=== PATIENT | male | born 1955 | race Caucasian/White ===

== ENCOUNTER 2023-09-11 08:51 | Day surgery (SDC) | payer MEDICARE, SELFPAY ==
[2023-09-02 10:39] VITALS: BMI 39.1
[2023-09-02 11:08] LABS: % Basophils 0.6 % (0-2); % Eosinophils 7.1 % (0-6); % Immature Granulocytes 0.1 % (0-0.5); % Lymphocytes 50.6 % (20.5-51.1); % Monocytes 8.9 % (1.7-9.3); % Neutrophils 32.7 % (42.2-75.2); Absolute Basophils 0.1 10^3/uL (0-0.2); Absolute Eosinophils 0.6 10^3/uL (0-0.7); Absolute Monocytes 0.7 10^3/uL (0.1-0.6); Absolute Neutrophils 2.6 10^3/uL (1.4-6.5); Hematocrit 42.6 % (39.0-52.0); Hemoglobin 14.7 g/dL (13.0-18.0); Mean Corp Hgb Conc. 34.5 g/dL (33.0-37.0); Mean Corpuscular Hgb 30.6 pg (27.0-31.0); Mean Corpuscular Volume 88.6 fL (80.0-94.0); Mean Platelet Volume 10.7 fL (7.4-10.4); Nucleated Red Blood Cells % 0 % (-); Platelet Count 167 10^3/uL (130-400); Red Blood Cell Count 4.81 10^6/uL (4.70-6.10); Red Cell Dist. Width 12.7 % (11.5-14.5)
[2023-09-02 11:17] LABS: INR 1.19; PT 14.9 Sec (11.4-14.6)
[2023-09-02 11:48] LABS: ALT (SGPT) 27 U/L (0-50); AST (SGOT) 34 U/L (17-59); Albumin 4.8 g/dl (3.5-5.0); Alkaline Phosphatase 95 U/L (38-126); Blood Urea Nitrogen 18 mg/dl (9-20); Calcium 9.4 mg/dl (8.4-10.2); Carbon Dioxide 29 mmol/L (22-30); Chloride 102 mmol/L (98-107); Estimated Creatinine Clearance 116 ml/min; Glucose 110 mg/dl (70-99); Magnesium 1.8 mg/dl (1.6-2.3); Potassium 4.3 mmol/L (3.5-5.1); Sodium 139 mmol/L (135-145); Total Bilirubin 1.4 mg/dl (0.2-1.3); Total Protein 7.6 g/dl (6.3-8.2); eGFR > 60.00
[2023-09-11 09:00] VITALS: BP 134/71
[2023-09-11 09:18] VITALS: BP 134/71
[2023-09-11 09:45] LABS: Glucose - Point of Care 116 mg/dl (70-99)
[2023-09-11 15:39] VITALS: BP 117/55
--- NOTE | 2023-09-11 16:24 | ITS.CL.ABL ---
Child Therapist - Ablation
Ablation
Procedure Report:
Procedure Date: 09/11/2023
Procedure
Electrophysiology Study, with RA, CS pacing and recording
Radiofrequency Ablation of Counterclockwise Cavotricuspid Isthmus-dependent Right Atrial Flutter
Three-dimensional Electroanatomic Mapping and Navigation
Patient History
See H&P for complete details
Patient is pleasant 68-year-old male with past medical history significant for BPPV status post EPS/RFA x 2 ([facility]i 2002, [facility] 2007), sleep apnea, obesity, aortic stenosis, GERD, asthma, mixed anemia, diabetes, bifascicular block,
persistent typical atrial flutter. Patient presenting for electrophysiology study and ablation of symptomatic typical persistent atrial flutter.
Method
After informed consent was obtained, the patient was brought to the EP lab in a post-absorptive, non-sedated state. A peripheral IV was in place. Continuous electrocardiography, blood pressure and pulse oximetry monitoring were initiated and
cardioversion / defibrillator patch electrodes were positioned on the chest in an anterior-posterior orientation. Sedation was administered via the anesthesia services. A time-out was called. Local anesthesia was administered at the right and left
femoral vein access sites. Vascular access was achieved using modified Seldinger technique, and 3 sheaths were placed.
The patient entered the room in sinus rhythm. A multipolar catheter were advanced to the coronary sinus. A mapping / ablation catheter was used to record and pace. Intracardiac ultrasound (ICE) was utilized for structural assessment and monitoring;
a prominent epicardial fat pad was noted at the beginning of the case which remained unchanged throughout and post-procedure. Tachycardia was characterized by activation patterns in the CS catheters. Entrainment maneuvers established
cavotricuspid isthmus-dependence.
Three-dimensional electroanatomic mapping was utilized. Catheter ablation in the right atrium was performed as described below. The patient�s atrial flutter terminated during ablation. Ablation continued until a line was complete from the
tricuspid valve annulus to the IVC-RA junction. Clockwise and counterclockwise trans-isthmus times were determined, and RA activation patterns confirmed bidirectional block. Interval measurements in NSR were made. A waiting period was observed,
after which the procedure was concluded.
At the end of the procedure, all catheters and sheaths were removed, hemostasis was assured in the standard fashion, and the patient was taken to the recovery area in stable condition.
Conduction Intervals (post-ablation, in ms)
A-A A-H H-V P-R QRS dur Q-T V-V
1056 120 46 [phone] [id number]
AVWB at 520 ms
AV Node ERP 600/420 ms
No arrhythmia was inducible post ablation
Arrhythmia Summary
#1 - Counterclockwise Cavotricuspid Isthmus-dependent Right Atrial Flutter
� Present at study outset (via induction with burst pacing via CS at 210 ms)
� Stable Atrial CL = 230 ms
� Surface flutter wave morphology: Negative in the inferior leads and positive in V1
� Right to left activation in CS
� Cycle length contained with in the RA on electroanatomic mapping
� Pacing from the isthmus resulted in entrainment (with concealment) with PPI=TCL.
These finding established the diagnosis of isthmus-dependent, counterclockwise atrial flutter.
Mapping and Ablation
Utilizing electroanatomic three-dimensional navigation, a 3.5 mm tip [employer] SE irrigated ablation catheter was advanced to the right atrium with the assistance of an 11.5 Fr Agilis steerable long sheath. An electroanatomic three-dimensional map
of the right atrium was constructed, with careful attention to anatomic landmarks, including the coronary sinus, IVC-RA and SVC-RA junction, tricuspid valve annulus, and region of the His bundle electrogram.
An ablation line was created from the tricuspid annulus to the IVC in the 6:00 position (MAURITANIAN clock). Power was titrated between 30 and 40 Andino. The patient�s atrial flutter terminated during ablation, with resumption of NSR. The line was
completed during CS pacing, and bidirectional block was achieved (65 ms before CTI completion and 165 ms post ablation). The ablation line was mapped to ensure widely spaced double potentials, and after a 20 minute waiting period, bidirectional
block persisted.
Ablation Summary
Total ablation time: 7 minutes 6 seconds
Estimated Blood Loss
5-10 cc
Fluoroscopy Time 2.4
Radiation Dose 11.9 mGy
DAP 1.59
Complications
None
Conclusions
1. Typical, counterclockwise atrial flutter. Isthmus-dependence was established with entrainment.
2. Successful ablation of the cavotricuspid isthmus with bidirectional block.
Recommendations
- Anticipate discharge home today
- Bedrest with straight leg precautions for four hours
- Resume anticoagulation tonight if patient/groins stable
- Continue remaining home medications as indicated
- Follow-up in clinic in 4-6 weeks or sooner if needed
Sergio Buenrostro,
Clinical Cardiac Electrophysiology
cc: Ned Green MD; Shahrzad Liao PA-C
[2023-09-11 17:33] VITALS: BP 112/76
== END 2023-09-11 18:02 | disposition home or self-care (01) ==
LOC: CATH 08:51
PROVIDERS: ATTENDING PHYSICIAN Internal Medicine Cardiovascular Disease; FAMILY PHYSICIAN Physician Assistant Medical
DX: I48.3 Typical atrial flutter (principal); I45.6 Pre-excitation syndrome; I48.92 Unspecified atrial flutter; I35.0 Nonrheumatic aortic (valve) stenosis; Z79.84 Long term (current) use of oral hypoglycemic drugs; E11.9 Type 2 diabetes mellitus without complications; I10 Essential (primary) hypertension; Z85.46 Personal history of malignant neoplasm of prostate; J45.909 Unspecified asthma, uncomplicated; E78.5 Hyperlipidemia, unspecified; Z92.3 Personal history of irradiation; G47.33 Obstructive sleep apnea (adult) (pediatric); K21.9 Gastro-esophageal reflux disease without esophagitis; E66.9 Obesity, unspecified; Z68.39 Body mass index [BMI] 39.0-39.9, adult; I45.2 Bifascicular block; Z79.01 Long term (current) use of anticoagulants
CPT/HCPCS: C1894; C1766; C2630; 36415; 75572; 76937; 80053; 82962; 83735; 85025; 85610; 86850; 86900; 86901; 93005; 93653; C1760; C1777; C1882; C1887; C1898; Q9967

== ENCOUNTER → 2023-10-02 12:28 | Outpatient (REF) | payer MEDICARE, SELFPAY | LOC: RCS 12:28 | PROVIDERS: ATTENDING PHYSICIAN Internal Medicine Interventional Cardiology; FAMILY PHYSICIAN Physician Assistant Medical | DX: I35.0 Nonrheumatic aortic (valve) stenosis (principal) | CPT/HCPCS: 93306 ==

== ENCOUNTER 2023-12-06 09:26 | Day surgery (SDC) | payer MEDICARE, SELFPAY ==
[2023-12-06] VITALS (11 sets, daily range): BP systolic 92–163; BP diastolic 51–73; BMI 39.5
[2023-12-06 10:01] LABS: Hematocrit 43.9 % (39.0-52.0); Hemoglobin 15.2 g/dL (13.0-18.0); Mean Corp Hgb Conc. 34.6 g/dL (33.0-37.0); Mean Corpuscular Hgb 30.2 pg (27.0-31.0); Mean Corpuscular Volume 87.3 fL (80.0-94.0); Mean Platelet Volume 10.3 fL (7.4-10.4); Platelet Count 158 10^3/uL (130-400); Red Blood Cell Count 5.03 10^6/uL (4.70-6.10); Red Cell Dist. Width 12.8 % (11.5-14.5); White Blood Cell Count 8.3 10^3/uL (4.8-10.8)
[2023-12-06] MEDS: LOW STRENGTH ASPIRIN 81 MG PO (10:05)
[2023-12-06 10:06] LABS: Glucose - Point of Care 122 mg/dl (70-99)
[2023-12-06 10:14] LABS: Blood Urea Nitrogen 15 mg/dl (9-20); Calcium 9.5 mg/dl (8.4-10.2); Carbon Dioxide 24 mmol/L (22-30); Chloride 105 mmol/L (98-107); Estimated Creatinine Clearance > 125 ml/min; Glucose 122 mg/dl (70-99); Potassium 4.5 mmol/L (3.5-5.1); Sodium 139 mmol/L (135-145); eGFR > 60.00
[2023-12-06] MEDS: NSS 1000 IV (12:34)
--- NOTE | 2023-12-06 13:38 | CONSULT.STRU ---
Consultation
-
Date/Time Consultation Requested: 12/06/2023 1235
Date/Time Consultation Performed: 12/06/2023 1300
Requesting Provider: Dr. Richy Green
Performing Provider: ANTELMO Guerrero
Reason for Consultation: Aortic stenosis/TAVR vs SAVR evaluation
Patient History
Physicians
Family Physician: Dr. Shahrzad Liao
Outpatient [employer] Dispatcher: Dr. Richy Green
Primary [employer] Dispatcher: Dr. Richy Green
History of Present Illness
Patient is pleasant 68-year-old male with past medical history significant for BPPV status post EPS/RFA x 2 (Eddi 2001, [facility] 2007), sleep apnea, obesity, aortic stenosis, GERD, asthma, mixed anemia, diabetes, bifascicular block,
persistent typical atrial flutter. Most recently he underwent RFA with Dr. Trent on 09/11/2023. He now presents today for cardiac cath as part of the evaluation process for treatment of his aortic stenosis. He has recently been experiencing
progressive MUJICA over the past 6 months. Echocardiogram from September is notable for AV PG/M/48, RAYO 1.1, No AI, EF 60-65%. 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
Reviewed the pathophysiology of aortic stenosis with the patient and his . Explained the treatment options of SAVR and TAVR. Discussed the need for life planning given his age and the probable need for at least two valves. Explained the TAVR
evaluation process including follow up BMP, CT TAVR scan, CT surgery consult and Heart Team discussion. Provided with script for BMP next week, script and appointment for CT TAVR, Consult appointment with Dr. Spencer and a copy of the TAVR education
booklet with contact information. Allowed for and answered questions.
Past Medical History
Past Medical History: Arrhythmias (Estrella Parkinson White Syndrome, A-flutter), Asthma (as a child), Cancer (h/o prostate cancer), MUJICA, GERD, Hypercholesterolemia, NIDDM, KWABENA (wears CPAP), Valvular Disease (Aortic stenosis) and Other (obesity, h/o
soft tissue mass, R-BBB/L-AFB)
Past Surgical History
Past Surgical History: Orthopedic (left shoulder rotator cuff repair, Left MCL, left hand surgery), Urological (Prostatectomy) and Other (Vasectomy, excision of soft tissue mass, cardiac ablations x 3)
Dental History
Has not been to the dentist is years. Will make appointment to see 's dentist - [facility] in [place], [place]
Family History
Mother: at Age
Father: at Age
Social History
Alcohol: Occasional
Drug: None
Tobacco: Non-Smoker
Personal:
Living: With Spouse
Employment: Retired
Allergies
Allergy/AdvReac Type Severity Reaction Status Date / Time
cat dander Allergy trouble Verified 08/27/23 11:27
breathing,
watery
eyes &
sneezing
chlorhexidine Allergy Rash Verified 08/27/23 11:27
[From Hibiclens]
dog dander Allergy trouble Verified 08/27/23 11:27
breathing,
watery
eyes &
sneezing
egg Allergy diarrhea Verified 09/11/23 15:44
ezetimibe [From Vytorin] Allergy Unknown Verified 09/11/23 15:43
ragweed pollen Allergy trouble Verified 08/27/23 11:27
breathing,
watery
eyes &
sneezing
simvastatin [From Vytorin] Allergy Unknown Verified 09/11/23 15:43
Home Medications
�Medication �Instructions �Recorded �Confirmed �Type
lisinopril 20 mg tablet 20 mg PO QPM 07/15/12 12/06/23 History
ibuprofen 200 mg tablet 400 mg PO PRN PRN pain 05/15/21 12/06/23 History
acetaminophen 325 mg tablet 650 mg PO PRN PRN pain 06/08/22 12/06/23 History
(Tylenol)
atorvastatin 20 mg tablet 20 mg PO QPM 06/08/22 12/06/23 History
budesonide-formoterol HFA 160 1 - 2 puff inhalation PRN PRN SOB 06/08/22 12/06/23 History
mcg-4.5 mcg/actuation aerosol
inhaler (Symbicort)
fluticasone propionate 50 1 - 2 spray intranasal PRN PRN 06/08/22 12/06/23 History
mcg/actuation nasal allergy
spray,suspension
metformin 500 mg tablet 500 mg PO QPM 06/08/22 12/06/23 History
apixaban 5 mg tablet (Eliquis) 5 mg PO BID 07/02/23 12/06/23 History
coenzyme Q10 100 mg capsule 50 mg PO QPM 07/02/23 12/06/23 History
(CoQ-10)
guaifenesin 1,200 mg tablet, 1,200 mg PO PRN PRN allergies 07/02/23 12/06/23 History
extended release 12 hr (Mucinex)
albuterol 90 mcg/actuation aerosol 90 mcg inhalation Q4 PRN sob 12/06/23 12/06/23 History
inhaler
STS%
STS %: 1.25%
Review of Systems
-
History Source: Patient
General: Reports No Symptoms
HEENT: Reports No Symptoms
Respiratory: Reports MUJICA
Cardiac: Reports No Symptoms
Abdomen/GI: Reports No Symptoms
: Reports Dysuria ('weak stream')
Musculoskeletal: Reports No Symptoms
Skin: Reports No Symptoms
Neurological: Reports No Symptoms
Vascular: Reports No Symptoms
Physical Exam
Vital Signs
Temp 98.3 F 12/06/23 09:36
Temp route: Oral 12/06/23 09:36
Pulse 56 12/06/23 13:30
Resp Rate 13 12/06/23 13:30
Blood pressure 128/65 12/06/23 13:21
Blood pressure extremity used: Right upper arm 12/06/23 09:36
Position: Lying 12/06/23 09:36
MAP (cuff-Kaila Monitor) 82 12/06/23 13:21
SaO2 94 12/06/23 13:30
Oxygen Mode of Delivery Room air 12/06/23 12:20
Can the patient verbally communicate their pain? Yes 12/06/23 12:20
Actual Weight 121.109 kg 12/06/23 10:01
Body Mass Index (BMI) 39.5 12/06/23 10:01
Labs
12/06/23 09:53
12/06/23 09:53
Diagnostic Studies
Echocardiogram 10/02/2023
CONCLUSIONS
Normal left ventricular size and systolic function. No regional wall motion
abnormalities are seen. LV ejection fraction is 60-65%.
Severe aortic stenosis. Peak/mean gradients are 76/48mmHg. The valve area by
continuity equation is 1.1cm sq. No aortic regurgitation is seen.
Compared to the previous LOGAN from Jul 2023, aortic stenosis was moderate to
severe, however gradients were not able to be obtained.
Indications:
NONRHEUMATIC AORTIC (VALVE) STENOSIS
Rhythm: Sinus
Portable Study: No
Technical Quality: Technically difficult study
Contrast: None
BP: 124 / 76
PROCEDURE
A complete Transthoracic Echocardiogram was performed utilizing two-dimensional
evaluation with color flow and spectral Doppler analysis.
FINDINGS
Left Ventricle
Normal left ventricular size and systolic function. No regional wall motion
abnormalities are seen. LV ejection fraction is 60-65% by visual assessment.
Mild concentric left ventricular hypertrophy. Diastolic function indeterminate.
Right Ventricle
Normal right ventricular size. Normal right ventricular systolic function.
Left Atrium
Indexed LA volume is within normal range (15-34 mL/m2).
Right Atrium
Normal right atrial size.
Mitral Valve
Structurally normal mitral valve. Mitral valve opens normally. No mitral
regurgitation is seen.
Aortic Valve
Thickened aortic valve with restricted leaflet motion. Severe aortic stenosis.
Peak/mean gradients are 76/48mmHg. The valve area by continuity equation is
1.1cm sq, using a LVOT of 2.0cm. No aortic regurgitation is seen.
Tricuspid Valve
Structurally normal tricuspid valve. Tricuspid valve opens normally. No
tricuspid regurgitation is seen. Right heart pressures could not be determined.
Pulmonic Valve
Pulmonic valve opens normally. No pulmonic regurgitation is seen.
Pericardium\\Pleura
Normal pericardium without effusion. No pleural effusion present.
Aorta
The aortic root is normal in caliber. The aortic arch is normal in caliber.
Other Finding
The IVC is of normal size and demonstrates normal respiratory variation.
Interatrial septum is intact with no evidence of shunting by color flow
Doppler. No intracardiac mass or thrombus formation seen.
MEASUREMENTS (Male / Female) Normal Values
2D ECHO
LV Diastolic Diameter PLAX 5.6 cm 4.2 - 5.9 / 3.9 - 5.3 cm
LV Systolic Diameter PLAX 3.0 cm
IVS Diastolic Thickness 1.2 cm 0.6 - 1.0 / 0.6 - 0.9 cm
LVPW Diastolic Thickness 1.3 cm 0.6 - 1.0 / 0.6 - 0.9 cm
LV Relative Wall Thickness 0.4
LVOT Diameter 2.0 cm
LA Area 4C View 18.4 cm2 <= 20 cm2
LA Length 4C 5.9 cm
LA Volume 44.4 cm3 18 - 58 / 22 - 52 cm3
RV Diastolic Basal Diameter 3.3 cm 2.0 - 2.8 cm
RV Diastolic Mid Diameter 2.8 cm 2.7 - 3.3 cm
Aorta at Sinotubular Diameter 2.7 cm
Ascending Aorta Diameter 3.3 cm
Aorta at Sinuses Diameter 3.0 cm
M-MODE
Aortic Root Diameter MM 3.3 cm
LA Systolic Diameter MM 4.0 cm
LA Ao Ratio MM 1.2
DOPPLER
AV Peak Velocity 436.0 cm/s
AV Peak Gradient 76.0 mmHg
AV Mean Gradient 48.0 mmHg
AV Velocity Time Integral 102.6 cm
LVOT Peak Velocity 147.0 cm/s
LVOT Peak Gradient 8.6 mmHg
LVOT Velocity Time Integral 36.5 cm
LVOT Stroke Volume 114.7 cm3
LVOT Stroke Volume Index 45.9 ml/m2 empty
LVOT Cardiac Index 2613.8 cm3/min
AV Area Cont Eq vti 1.1 cm2
AV Area Cont Eq pk 1.1 cm2
MV Area PHT 2.8 cm2
Mitral E Point Velocity 111.0 cm/s
Mitral A Point Velocity 81.4 cm/s
Mitral E to A Ratio 1.4
LV E' Lateral Velocity 6.3 cm/s
Mitral E to LV E' Lateral Ratio 17.6
LV E' Septal Velocity 5.8 cm/s
Mitral E to LV E' Septal Ratio 19.2
PV Peak Velocity 199.0 cm/s
PV Peak Gradient 15.8 mmHg
Cardiac Catheterization 12/06/2023
HEMODYNAMICS : (mmHg)
AO (s/d) : 128/74
CORONARY FINDINGS
DOMINANCE: Right
LEFT MAIN: Normal
LEFT ANTERIOR DESCENDING: The LAD arises normally from the left main and runs in the anterior interventricular groove. The LAD has only minor luminal irregularities over its course. The first diagonal branch arises from the proximal third of the
LAD
CIRCUMFLEX: The circumflex has an anomalous origin from the right coronary cusp. The circumflex supplies 2 obtuse marginal branches.
RIGHT CORONARY ARTERY: The right coronary artery is a dominant vessel arising from the right coronary cusp. Minor irregularities are noted. The PDA is large. Posterolateral branch is small
VENTRICULOGRAPHY: Not done
RADIATION SUMMARY: Fluoro Time (min): 7.8, Dose (mGy): 914, DAP (Gy.cm2) : 58.3
Closure Device: TR band
CONCLUSIONS
1. 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
2. Nonobstructive coronary disease
RECOMMENDATIONS
1. Proceed with CT scan of chest, abdomen, pelvis
2. Patient will be discussed in multidisciplinary valve clinic forearm to determine best treatment option for his aortic stenosis
Exam
General: Well Developed, Well Nourished, No Apparent Distress and Comfortable
HEENT: Normocephalic, Moist Mucous Membranes and PERRLA
Neck: Trachea Midline
Respiratory: Clear; Negative Wheezes, Crackles or Rhonchi
Cardiac: S1/S2, Regular Rhythm and Murmur (Grade II/)
GI: Soft, Non Tender, Non Distended and Normal Bowel Sounds
Rectal: Deferred by Provider
Skin: Warm and Dry
Neuro: AO x 3 and No Motor Deficits
Extremities: Pulses (+2 dp pulses bilaterally); Negative Lower Level Edema
Psych: Calm
Assessment / Plan
-
Procedure Type:�Isolated AVR
PERIOPERATIVE OUTCOME ESTIMATE %
Operative Mortality 1.25%
Morbidity & Mortality 7.55%
Stroke 0.674%
Renal Failure 1.03%
Reoperation 2.93%
Prolonged Ventilation 3.04%
Deep Sternal Wound Infection 0.078%
Long Hospital Stay (>14 days) 3.41%
Short Hospital Stay (<6 days)* 49.6%
Severe Aortic stenosis:
��������������� Continue evaluation for TAVR vs SAVR
��������������� BMP 12/12 at [facility]
��������������� CT TAVR scan 12/20/2023 at 0930 at
��������������� CT surgery consult with Dr. Spencer 12/25/2023
��������������� Heart team discussion at [facility]
Dental Clearance- has not seen dentist in 'years'
Data Reviewed
-
EKG: Report Reviewed by me
Saw Cleaner: Report Reviewed by me and Discussed with Physician
Echo: Report Reviewed by me and Discussed with Physician
Labs: Labs Reviewed by me
Total Time Spent with Patient (in minutes): 45
--- NOTE | 2023-12-06 15:51 | ITS.CL.CATH ---
Embedded Systems Software Engineer - Catheterization
Cardiac Catheterization
Procedure Report:
LEFT HEART CATHETERIZATION
Date of Procedure: December 06, 2023
Referring: Dr. Richy Green
PROCEDURES:
1. Coronary angiography
INDICATION: This is a 68-year-old gentleman with a past medical history notable for WPW treated with radiofrequency ablation in 2001 and 2007, obstructive sleep apnea, diabetes, asthma, hyperlipidemia, and hypertension. He was noted to be in atrial
flutter when he presented for colonoscopy in May 2023 and underwent ablation of the atrial flutter by Dr. Sergio Buenrostro on 09/13/2023. His aortic stenosis has progressed with his most recent mean gradient measuring 48 mmHg by echocardiography
on 10/02/2023 and he has noticed increased shortness of breath and decline in exercise capacity. He is now referred for coronary angiography.
ACCESS: Right radial artery, 6 Swiss sheath
HEMODYNAMICS : (mmHg)
AO (s/d) : 128/74
CORONARY FINDINGS
DOMINANCE: Right
LEFT MAIN: Normal
LEFT ANTERIOR DESCENDING: The LAD arises normally from the left main and runs in the anterior interventricular groove. The LAD has only minor luminal irregularities over its course. The first diagonal branch arises from the proximal third of the
LAD
CIRCUMFLEX: The circumflex has an anomalous origin from the right coronary cusp. The circumflex supplies 2 obtuse marginal branches.
RIGHT CORONARY ARTERY: The right coronary artery is a dominant vessel arising from the right coronary cusp. Minor irregularities are noted. The PDA is large. Posterolateral branch is small
VENTRICULOGRAPHY: Not done
RADIATION SUMMARY: Fluoro Time (min): 7.8, Dose (mGy): 914, DAP (Gy.cm2) : 58.3
Closure Device: TR band
CONCLUSIONS
1. 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
2. Nonobstructive coronary disease
RECOMMENDATIONS
1. Proceed with CT scan of chest, abdomen, pelvis
2. Patient will be discussed in multidisciplinary valve clinic forearm to determine best treatment option for his aortic stenosis
Copy to: Dr. Richy Green
== END 2023-12-06 15:00 | disposition home or self-care (01) ==
LOC: CATH 09:26
PROVIDERS: ATTENDING PHYSICIAN Internal Medicine Interventional Cardiology; FAMILY PHYSICIAN Physician Assistant Medical; OTHER PHYSICIAN Internal Medicine Interventional Cardiology
DX: I25.10 Atherosclerotic heart disease of native coronary artery without angina pectoris (principal); I35.0 Nonrheumatic aortic (valve) stenosis; I48.92 Unspecified atrial flutter; I10 Essential (primary) hypertension; E78.00 Pure hypercholesterolemia, unspecified; E11.9 Type 2 diabetes mellitus without complications; J45.909 Unspecified asthma, uncomplicated; G47.33 Obstructive sleep apnea (adult) (pediatric); K21.9 Gastro-esophageal reflux disease without esophagitis; E66.9 Obesity, unspecified; Z68.39 Body mass index [BMI] 39.0-39.9, adult; Z85.46 Personal history of malignant neoplasm of prostate; Z79.01 Long term (current) use of anticoagulants; Z79.84 Long term (current) use of oral hypoglycemic drugs
CPT/HCPCS: 80048; 82962; 85027; 93454; C1894; Q9967

== ENCOUNTER → 2023-12-20 09:10 | Outpatient (REF) | payer MEDICARE, SELFPAY | LOC: RAD 09:10 | PROVIDERS: ATTENDING PHYSICIAN Nurse Practitioner Adult Health | DX: I35.0 Nonrheumatic aortic (valve) stenosis (principal) | CPT/HCPCS: 74174; 75572; Q9967 ==

== ENCOUNTER 2024-01-08 05:06 | Inpatient (IN) | payer MEDICARE, SELFPAY ==
[2024-01-06 08:35] VITALS: BMI 38.8
[2024-01-06 09:30] LABS: % Basophils 0.4 % (0-2); % Eosinophils 3.5 % (0-6); % Immature Granulocytes 0.1 % (0-0.5); % Lymphocytes 48.8 % (20.5-51.1); % Monocytes 9.9 % (1.7-9.3); % Neutrophils 37.3 % (42.2-75.2); Absolute Eosinophils 0.2 10^3/uL (0-0.7); Absolute Lymphocytes 3.3 10^3/uL (1.2-3.4); Absolute Monocytes 0.7 10^3/uL (0.1-0.6); Absolute Neutrophils 2.5 10^3/uL (1.4-6.5); Hematocrit 42.9 % (39.0-52.0); Hemoglobin 14.6 g/dL (13.0-18.0); Mean Corpuscular Volume 88.3 fL (80.0-94.0); Mean Platelet Volume 10.7 fL (7.4-10.4); Nucleated Red Blood Cells % 0 % (-); Platelet Count 145 10^3/uL (130-400); Red Blood Cell Count 4.86 10^6/uL (4.70-6.10); Red Cell Dist. Width 12.4 % (11.5-14.5); White Blood Cell Count 6.8 10^3/uL (4.8-10.8)
[2024-01-06 09:31] LABS: PT 14.3 Sec (11.4-14.6)
[2024-01-06 09:34] LABS: APTT 32.8 Sec (23.4-35.0)
[2024-01-06 09:48] LABS: ALT (SGPT) 25 U/L (0-50); AST (SGOT) 35 U/L (17-59); Albumin 4.8 g/dl (3.5-5.0); Alkaline Phosphatase 87 U/L (38-126); Blood Urea Nitrogen 18 mg/dl (9-20); Calcium 9.8 mg/dl (8.4-10.2); Carbon Dioxide 27 mmol/L (22-30); Chloride 102 mmol/L (98-107); Direct Bilirubin 0.2 mg/dl (0.0-0.4); Estimated Creatinine Clearance > 125 ml/min; Glucose 119 mg/dl (70-99); Potassium 4.5 mmol/L (3.5-5.1); Sodium 140 mmol/L (135-145); Total Bilirubin 0.9 mg/dl (0.2-1.3); Total Protein 7.4 g/dl (6.3-8.2); eGFR > 60.00
[2024-01-06 10:05] LABS: Urine Albumin Negative (Neg - Trace); Urine Bilirubin 1+ (Negative); Urine Character Clear (Clear); Urine Color Yellow; Urine Glucose Negative (Negative); Urine Ketone Negative (Negative); Urine Leukocyte Negative (Negative); Urine Nitrite Negative (Negative); Urine Occult Blood Negative (Negative); Urine Urobilinogen Negative (Neg - 1+)
[2024-01-06 10:49] LABS: Glycohemoglobin (HgbA1c) 6.1 % (4.0-5.6)
--- NOTE | 2024-01-06 11:34 | CM ---
CM met w/ patient/ spouse during pre-admission testing for AVR planned for 01/07.
Pt. resides in a private 2 story home w/ spouse, 2 ERON. Functionally, patient is quite indep. at baseline w/ ADLs, mobility without the use of any assisted device. Pt. spends 6 mo out of the year in [facility]. Pt. has CPAP machine, supplied by
[employer], which he uses regularly.
Pt. has Rx plan and uses [facility] on [address] in [place].
Reviewed pre and post op routines.
Shower instructions and Cardiac Surgery booklet provided. Note* Pt. stated allergy to Chlorhexidine; spoke w/ EMT/DISPATCHER regarding this, advised to use Dial soap which patient has from prior surgeries.
Reviewed post op restrictions to include lifting, driving, flying and sternal precautions.
Cardiac Rehab, post -op MD appointments and visit from CT Transitional Care RN reviewed.
Plan for CT Surgery 01/07.
Anticipated DC plan is for home w/ CT Transitional Care RN.
CM to follow.
[2024-01-08] VITALS (7 sets, daily range): BP systolic 91–179; BP diastolic 56–86; PULSE 69; BMI 38.8; BMI 38.4
--- NOTE | 2024-01-08 05:22 | PTCARENOTE ---
pt admitted into room 2267. VS and weight obtained. pt confirms 3 showers @ home w antimicrobial soap. pt has allergy to CHG--no CHG wipes. clip prep done. admission questions and med rec completed. pre-op meds given.
[2024-01-08] MEDS: PROTONIX 40 MG PO (05:24)
[2024-01-08] MEDS: LOPRESSOR 25 MG PO (05:24)
[2024-01-08] MEDS: MAGNESIUM OXIDE 500 MG PO (05:24)
[2024-01-08] MEDS: BACTROBAN 2% OINTMENT 1 APPLIC NASAL ×2 (05:24→19:36)
--- NOTE | 2024-01-08 06:32 | W.CVOR.SURPR ---
CVOR Surgeon Immed Pre Op
-
I have examined this patient prior to performance of the scheduled procedure.
The patient's condition is unchanged from the time of the dictated/written History and
Physical and the patient is able to undergo the scheduled procedure.
MDT discussion with consensus to pursue SAVR +/- Root enlargement + LCx bypass
Will also perform LA MAZE + RELL E given his history of afib and recent ablation and risk for perioperative afib
[2024-01-08 07:35] LABS: Urine Albumin Negative (Neg - Trace); Urine Bilirubin 1+ (Negative); Urine Character Clear (Clear); Urine Color Yellow; Urine Glucose Negative (Negative); Urine Ketone Negative (Negative); Urine Leukocyte Negative (Negative); Urine Nitrite Negative (Negative); Urine Occult Blood Trace (Negative); Urine Specific Gravity 1.025 (<1.030); Urine Urobilinogen Negative (Neg - 1+)
[2024-01-08 07:49] LABS: ACT+ - POC 109 Seconds (82-134)
[2024-01-08 08:26] LABS: Urine Urothelial Cell 0-2 /LPF (FEW); Urine White Cell 0-2 /HPF (0-5)
[2024-01-08 09:57] LABS: B.E. - POC -4.3 mmol/L; Glucose - POC 176 mg/dl (65-99); HCO3 - POC 24 mmol/L (21-29); Hematocrit - POC 46 % PCV (42-52); Hemodilution- POC No; Hemoglobin Calculated - POC 15.8; O2 Saturation %Calculated-POC 98.2 5 (92-96); PCO2 - POC 56 mmHg (35-45); PO2 - POC 128 mmHg (80-100); Potassium - POC 3.9 mmol/L (3.6-5.0); Sodium - POC 142 mmol/L (135-145); pH - POC 7.24 (7.35-7.45)
[2024-01-08 10:16] LABS: B.E. - POC -2.7 mmol/L; Glucose - POC 229 mg/dl (65-99); HCO3 - POC 25 mmol/L (21-29); Hematocrit - POC 30 % PCV (42-52); Hemodilution- POC Yes; Hemoglobin Calculated - POC 10.2; Ionized Calcium - POC 0.99 mmol/L (1.12-1.27); PCO2 - POC 55 mmHg (35-45); PO2 - POC 457 mmHg (80-100); POC Comment CPB; Potassium - POC 5.3 mmol/L (3.6-5.0); Sodium - POC 138 mmol/L (135-145); pH - POC 7.26 (7.35-7.45)
[2024-01-08 10:40] LABS: ACT+ - POC > 1003 Seconds (82-134)
[2024-01-08 10:40] LABS: ACT+ - POC > 1003 Seconds (82-134)
[2024-01-08 10:53] LABS: ACT+ - POC 793 Seconds (82-134)
[2024-01-08 11:09] LABS: B.E. - POC -7.1 mmol/L; Glucose - POC 303 mg/dl (65-99); HCO3 - POC 19 mmol/L (21-29); Hematocrit - POC 32 % PCV (42-52); Hemodilution- POC Yes; Ionized Calcium - POC 1.01 mmol/L (1.12-1.27); O2 Saturation %Calculated-POC 99.7 5 (92-96); PCO2 - POC 42 mmHg (35-45); PO2 - POC 238 mmHg (80-100); POC Comment CPB; Potassium - POC 3.6 mmol/L (3.6-5.0); Sodium - POC 140 mmol/L (135-145); pH - POC 7.27 (7.35-7.45)
[2024-01-08 11:40] LABS: ACT+ - POC 801 Seconds (82-134)
[2024-01-08 12:07] LABS: B.E. - POC -5.6 mmol/L; Glucose - POC 272 mg/dl (65-99); HCO3 - POC 20 mmol/L (21-29); Hematocrit - POC 32 % PCV (42-52); Hemodilution- POC Yes; Hemoglobin Calculated - POC 10.7; Ionized Calcium - POC 0.97 mmol/L (1.12-1.27); O2 Saturation %Calculated-POC 99.1 5 (92-96); PCO2 - POC 41 mmHg (35-45); PO2 - POC 147 mmHg (80-100); POC Comment CPB; Potassium - POC 3.5 mmol/L (3.6-5.0); Sodium - POC 144 mmol/L (135-145)
[2024-01-08 12:23] LABS: ACT+ - POC 600 Seconds (82-134)
[2024-01-08 12:43] LABS: B.E. - POC -6.2 mmol/L; Glucose - POC 223 mg/dl (65-99); HCO3 - POC 20 mmol/L (21-29); Hematocrit - POC 33 % PCV (42-52); Hemodilution- POC Yes; Hemoglobin Calculated - POC 11.1; Ionized Calcium - POC 0.92 mmol/L (1.12-1.27); PCO2 - POC 41 mmHg (35-45); PO2 - POC 557 mmHg (80-100); POC Comment CPB; Potassium - POC 3.1 mmol/L (3.6-5.0); Sodium - POC 146 mmol/L (135-145); pH - POC 7.29 (7.35-7.45)
[2024-01-08 12:53] LABS: ACT+ - POC 526 Seconds (82-134)
[2024-01-08 13:02] LABS: B.E. - POC -8.5 mmol/L; Glucose - POC 216 mg/dl (65-99); HCO3 - POC 14 mmol/L (21-29); Hematocrit - POC 31 % PCV (42-52); Hemodilution- POC Yes; Hemoglobin Calculated - POC 10.6; Ionized Calcium - POC 1.24 mmol/L (1.12-1.27); PCO2 - POC 20 mmHg (35-45); PO2 - POC 487 mmHg (80-100); POC Comment WARM; Potassium - POC 3.9 mmol/L (3.6-5.0); Sodium - POC 145 mmol/L (135-145); pH - POC 7.45 (7.35-7.45)
[2024-01-08 13:09] LABS: ACT+ - POC 454 Seconds (82-134)
[2024-01-08 13:45] LABS: B.E. - POC -0.5 mmol/L; Glucose - POC 208 mg/dl (65-99); HCO3 - POC 23 mmol/L (21-29); Hematocrit - POC 28 % PCV (42-52); Hemodilution- POC Yes; Hemoglobin Calculated - POC 9.6; Ionized Calcium - POC 1.02 mmol/L (1.12-1.27); PCO2 - POC 32 mmHg (35-45); PO2 - POC 487 mmHg (80-100); Potassium - POC 3.3 mmol/L (3.6-5.0); Sodium - POC 150 mmol/L (135-145); pH - POC 7.46 (7.35-7.45)
[2024-01-08 13:49] LABS: ACT+ - POC 107 Seconds (82-134)
[2024-01-08 14:23] LABS: B.E. - POC -2.6 mmol/L; Glucose - POC 172 mg/dl (65-99); HCO3 - POC 23 mmol/L (21-29); Hematocrit - POC 32 % PCV (42-52); Hemodilution- POC Yes; Hemoglobin Calculated - POC 10.8; Ionized Calcium - POC 1.07 mmol/L (1.12-1.27); O2 Saturation %Calculated-POC 99.9 5 (92-96); PCO2 - POC 43 mmHg (35-45); PO2 - POC 369 mmHg (80-100); Potassium - POC 3.1 mmol/L (3.6-5.0); Sodium - POC 149 mmol/L (135-145); pH - POC 7.34 (7.35-7.45)
--- NOTE | 2024-01-08 14:30 | W.PN.CT.SURG ---
CT Surgery Operative Note
-
CARDIAC SURGERY OPERATIVE REPORT
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
Postoperative Diagnosis: Same
Procedure(s) Performed:
1. Standard sternotomy with aortic and right atrial cannulation
2. CABG x 1 [aorto to left radial to OM]
3. Surgical aortic valve replacement with aortic root enlargement (Modified Nicks-Mae) using bovine pericardial patch
4. Left atrial maze, surgical ablation [RF ablation]
5. Left atrial appendage exclusion [35 mm clip]
6. Placement of temporary atrial and ventricular pacing wires
7. Transesophageal echocardiography
Date of Surgery: 01/08/2024
Comorbidities:
1. Severe aortic valve stenosis with moderate aortic valve insufficiency
2. Hypertension
3. Hyperlipidemia
4. Acute on chronic diastolic heart failure with moderate to moderately severe left ventricular hypertrophy
5. Cdmkt-Ywhcxjsvf-Ytxpz syndrome status post RF ablation
6. Paroxysmal atrial fibrillation status post ablation
7. Morbidly obese with a BMI of 38
8. Obstructive sleep apnea on CPAP
9. Nonobstructive coronary artery disease
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
11. Anaphylactic shock after induction
Attending Surgeon: Paolo Spencer MD, MS
Assistants: Marybeth Thompson PA-C (present and necessary to certified dental assistant, retraction, suction, exposure, suture management, and wound closure under my direction) and Fiorella Alicea PA-C (left radial endo harvest)
Anesthesiology: Zachery Burnham MD and Tu Carrington CRNA
Scrub and Circulating RNs: Claudette Carpenter, RN, Sami Rodas RN
Fiber Optics Technician: Rebel Alexander CCP and Ebony Banegas CCP
Anesthesia: GETA
EBL: per perfusion records
Products: 2 plts (had to stop due to reaction), plan for FFP in CVICU
CPB Time: 222 minutes
Aortic Cross Clamp Time: 167 minutes
Indication(s) for Procedures: This is a 68-year-old male with known severe aortic valve stenosis. He was initially being seen for TAVR however given his anomalous left circumflex running through the aorto mitral curtain at the right and noncoronary
cusp portion of the annulus, he is considered to be high risk for TAVR due to compression in that artery. We discussed the risk and benefits of surgical aortic valve replacement with possible need for root enlargement. Given his history of atrial
fibrillation/a flutter, he was also offered surgical ablation and left atrial appendage ligation at time of surgery. MDT discussion about his case with the overall group consensus that he is better suited for a surgical intervention.
Aortic Valve Description: Trileaflet aortic valve with heavily calcified free margin and body into the annulus. Left and right coronary ostia within normal anatomic position however the ostium of the circumflex shared common opening to the right
coronary artery ectopy seen. The left circumflex could also be traced running through the annulus at the aorto mitral curtain.
Findings: His left ventricular ejection fraction preoperatively was normal at 60 to 65%. He had moderately severe left ventricular hypertrophy as well as severe aortic valve stenosis and a moderate degree of aortic valve insufficiency on
transesophageal echocardiogram. Of note, after induction after placement of his Matos catheter and [place], he had an anaphylactic reaction to an unknown medication or topical drug that required epinephrine, steroids, and Benadryl injections. He did
stabilize after short period of time and recovered so we proceeded with surgery. Following surgery his left ventricular ejection fraction was 75%, extremely hyperdynamic. He had a very thick heart and initially had a flow gradient across the LVOT
that slowly improved as his vasoplegia also improved. He did require vasopressin coming off of cardiopulmonary bypass which is likely secondary to his anaphylactic shock. At the conclusion of the surgery he had no paravalvular leak, the mean
gradient across his new bioprosthetic aortic valve was likely inaccurate due to his hyperdynamic state. His left ventricular ejection fraction was at least 75% and a cardiac index was well over 3 at that time. There were no new regional wall
motion abnormalities and he had excellent flow in his radial artery bypass graft to the OM. His [place] aortic valve size to approximately 21 mm surgical aortic valve and so aortic root enlargement was performed given his body size. This was
performed using a bovine pericardial patch after cutting down the left none commissure and extending it towards the left and right trigone's. The patch was sewn to each apex and up the [place] aorta forming a new Khoi sinus. The new valve was sized
to a 25 mm valve and was secured into place with a total of 18 pledgeted and nonpledgeted 2 Ethibond sutures circumferentially. The valve had normal leaflet excursion and no paravalvular leak. His left atrial appendage was verified to be free of
any thrombus or debris preoperatively and totally occlusive with no color flow on transesophageal echo cardiography. A left atrial maze was also performed while on cardiopulmonary bypass given his history of atrial flutter. His left radial artery
was grafted from his [place] aorta to the OM and had excellent flow on assessment post bypass.
Specimen(s): [place] aortic valve.
Prosthesis:
1. SAVR, [place] Inspiris Resilia, 25mm, SN [id number]
2. Bovine pericardium, SN [id number]
3. RELL Clip, 35mm, SN [id number]
4. Bioglue
5. Two sternal plates (boomerang and square)
Description of Procedure: The patient was taken to the operating room. Their identity and procedure to be performed were verified and they were positioned supine on the operating table. Induction via general anesthesia with endotracheal intubation
was performed and central venous access and arterial monitoring were inserted. A preoperative transesophageal echocardiogram was performed to assess cardiac function and valvular function. The patient was then prepped and draped from chin to feet in
a sterile fashion. A preoperative time-out was performed with all members of the team present. A midline chest incision was performed along with median sternotomy with simultaneous endoscopic harvest of the left radial artery. The innominate vein
was isolated. Full heparinization was given (a total of 60,000 units). We created a pericardial well. The aortic cannulation site was chosen where it was soft, pliable, and free of calcium. Cannulation was performed with an arterial cannula in the
ascending aorta and a triple-stage venous cannula through the right atrial appendage. The arterial cannula line had an appropriate bounce and correlating pressures with test dosing. Next, a root vent/antegrade cannula was inserted into the ascending
aorta. The ACT was confirmed to be over 400, no retrograde autologous priming was performed however whole blood was taken and stored for all transfusion postsurgery before commencing cardiopulmonary bypass. The pulmonary artery was away
from the aorta to facilitate a clamp site and aortotomy. Next, the space in the SVC and right pulmonary artery was developed. The oblique sinus was also developed. The encompass RF ablation clamp was then placed across the transverse sinus and
oblique sinus and 3 successful pairs of ablations was performed on cardiopulmonary bypass. A left ventricular vent was placed at the right superior pulmonary vein and secured. A retrograde coronary sinus catheter was placed via the right atrium.
The aortic cross-clamp was placed after decreasing the flow on the bypass and mean arterial pressure. A total of 1.2L initial dose of antegrade combined with retrograde Del-Nido cardioplegia solution was given and planned for re-dosing every 50
minutes as necessary (using a variation of retrograde, and direct ostial). There was electro-mechanical arrest of the heart at 600 cc of cardioplegia. The left ventricle was observed for distention on echocardiogram and manual palpation. Cold slush
was placed into a sponge and topically on the RV while we systemically cooled to 32 degrees centigrade to protect the heart due to his hypertrophic.
Carbon dioxide was used to flood the field. We manually identified the location of the right coronary take off. An aortotomy was made approximately 2cm above the sinotubular junction. The location of both left and right coronary vessels were
visualized in the root.The leaflets were excised and sent for pathological assessment. The annulus was debrided of any calcium being mindful of the annulus and membranous septum. The root and left ventricular outflow tract were thoroughly irrigated
to remove any debris. Given the size of his [place] aortic root and annulus, root enlargement was performed by extending the incision down towards the left noncoronary commissure and extending the incision underneath the annulus left and right. A
bovine pericardial patch was then fashioned and sewn into place using 4-0 Prolene in a running fashion with intermittent securing sutures. At this point the radial artery had been harvested to the heart was medialized and an OM target was
identified. The RELL clip was applied after dividing the Ligament of Peter. Using a [place] blade the target was identified and cleared and then a small coronary arteriotomy was created enlarged with Berger scissors. The radial artery was then
grafted in end-to-side fashion using 8-0 Prolene and secured with a micro core knot. Test dosing of antegrade using a 14-gauge Angiocath demonstrated excellent flow down the artery and also hemostasis. I then turned my attention back towards the
root. A total of 18 non-pledgeted and pledgeted 2-0 ethibond annular sutures were placed [id number] circumferentially. At the location of the patch, pledgeted ethibonds were used and placed external to internal. These were brought through the
sewing cuff of the prosthetic valve which as then parachuted into place. The left and right coronary ostia were visualized and were unobstructed by the valve. A Cor-Knot device was used to secure the annular sutures. The valve was inspected and was
well seated. The aortotomy was approximated with 4-0 prolene running up the patch along the [place] aorta. De-airing maneuvers were performed and temporary bipolar ventricular pacing wires were placed on the base of the right ventricle. The patient
was placed in a trendelenburg position and flows on bypass were lowered. The retrograde was removed. The aortic cross clamp was removed and flows were slowly brought back up. The aortotomy and patch appeared hemostatic. Transesophageal
echocardiography revealed no paravalvular leak and appropriate prosthetic function. Once de-airing was satisfactory, the left ventricular and root vents were removed. After verifying acceptable parameters, we initiated weaning from cardiopulmonary
bypass. Once we were off cardiopulmonary bypass, the venous cannula was clamped and removed. We did have to reinstitute CPB as he was vasoplegic which improved with vasopressin infusion. A test dose of protamine was administered and the patient was
monitored for any adverse reaction before resuming protamine. Once half of the protamine dose was delivered, pump suckers were turned off and the systolic blood pressure was lowered for aortic decannulation. The aortic cannula was removed and
pursestrings were tied down. All cannulation sites were oversewn with a 4-0 prolene. The aortotomy suture line was inspected and hemostasis was confirmed. Mediastinal hemostasis was obtained. Two 24Fr Markos drains were placed within the pericardium.
The sternum was approximated with 4 #7 single and 3 #8 double stainless steel wires, additional sternal plates were placed given his body habitus. Fascia was approximated with #1 vicryl suture. The subcutaneous, dermis and epidermis were closed in
layers in a running fashion. The skin wound was cleansed and dressed.
All instrument, sponge, and needle counts were confirmed to be correct x 2 at the end of the operation. The patient was transferred to the cardiac intensive care unit in critical but stable condition.
I, Dr. Paolo Spencer, was present, scrubbed for, and performed all critical elements of this procedure.
Paolo Spencer MD, MS
Cardiothoracic Surgeon
[facility]
This operative dictation was created using the [employer] dictation system. Please excuse any grammatical, typographical, or 'sound alike' errors
[2024-01-08 15:00] LABS: Glucose - Point of Care 156 mg/dl (70-99)
[2024-01-08 15:02] LABS: B.E. -0.2 mmol/L; HCO3 26.4 mmol/L (21-28); Ionized Calcium 1.05 mMOL/L (1.15-1.33); PCO2 50 mmHg (35-48); PO2 169 mmHg (83-108); Sodium 143 mMOL/L (136-145); pH 7.33 (7.35-7.45)
--- NOTE | 2024-01-08 15:02 | CON.INTV ---
Consultation
Consultation Request
Date/Time Consultation Requested: 01/08/24
Date/Time Consultation Performed: 01/08/24
Performing Provider: Octaviano
Reason for Consultation: Critical Care
Medical History
-
History of Present Illness:
Patient is a 68-year-old male with previous history of aortic valve stenosis with mild to moderate aortic valve insufficiency with acute on chronic symptomatic shortness of breath with exertion, progressive. Underwent CAB/valve replacement/MAZE
01/08/2024 and postoperatively transferred to CVICU mechanical ventilation for further management.
Past Medical History
Past Medical History: Other (see list below)
Social History
Tobacco: Non-smoker
Alcohol: None
Drug: None
Family History
Family History: Reviewed & Not Pertinent
Allergies / Home Medications
Allergies
Allergy/AdvReac Type Severity Reaction Status Date / Time
iodine Allergy Severe Anaphylaxis Verified 01/08/24 07:57
cat dander Allergy trouble Verified 01/01/24 14:14
breathing,
watery
eyes &
sneezing
chlorhexidine Allergy Rash Verified 01/01/24 14:14
[From Hibiclens]
dog dander Allergy trouble Verified 01/01/24 14:14
breathing,
watery
eyes &
sneezing
egg Allergy diarrhea Verified 01/01/24 14:14
ezetimibe [From Vytorin] Allergy Unknown Verified 01/01/24 14:14
ragweed pollen Allergy trouble Verified 01/01/24 14:14
breathing,
watery
eyes &
sneezing
simvastatin [From Vytorin] Allergy Unknown Verified 01/01/24 14:14
Home Medications
�Medication �Instructions �Recorded �Confirmed �Last Taken �Type
lisinopril 20 mg tablet 20 mg PO QPM 07/15/12 01/08/24 01/06/24 History
ibuprofen 200 mg tablet 400 mg PO PRN PRN pain 05/15/21 01/08/24 01/01/24 History
acetaminophen 325 mg tablet 650 mg PO PRN PRN pain 06/08/22 01/08/24 01/01/24 History
(Tylenol)
atorvastatin 20 mg tablet 20 mg PO QPM 06/08/22 01/08/24 01/06/24 History
budesonide-formoterol HFA 160 1 - 2 puff inhalation PRN PRN SOB 06/08/22 01/08/24 01/06/24 History
mcg-4.5 mcg/actuation aerosol
inhaler (Symbicort)
fluticasone propionate 50 1 - 2 spray intranasal PRN PRN 06/08/22 01/08/24 01/06/24 History
mcg/actuation nasal allergy
spray,suspension
metformin 500 mg tablet 500 mg PO QPM 06/08/22 01/08/24 01/06/24 History
apixaban 5 mg tablet (Eliquis) 5 mg PO BID 07/02/23 01/08/24 01/05/24 History
coenzyme Q10 100 mg capsule 50 mg PO QPM 07/02/23 01/08/24 01/06/24 History
(CoQ-10)
guaifenesin 1,200 mg tablet, 1,200 mg PO PRN PRN allergies 07/02/23 01/08/24 01/06/24 History
extended release 12 hr (Mucinex)
albuterol 90 mcg/actuation aerosol 90 mcg inhalation Q4 PRN sob 12/06/23 01/08/24 01/06/24 History
inhaler
Review of Systems
-
Unable to Obtain full review of systems at this time due to: Patient Intubation
Vitals / Labs / Diagnostic Testing
Vital Signs
Temp Pulse Resp BP Pulse Ox
97.9 F 82 18 178/86 94
01/08/24 05:11 01/08/24 05:11 01/08/24 05:11 01/08/24 05:10 01/08/24 05:11
Microbiology
01/06/24 08:54 Nose MRSA Screen - Final
No Methicillin Resistant Staphylococcus aureus isolated.
Diagnostic Testing:
Physical Exam
-
HEENT: Normocephalic, Anicteric and Moist Mucous Membranes
Cardiovascular: S1/S2 and Regular Rhythm
Respiratory: Clear, Non-Labored Respirations and Other (ETT/chest tube)
GI: Soft, Non Distended and Non Tender
Neurology: Other (sedated/intubated)
Skin: Warm, Dry and Good Color
General: Comfortable and Other (NAD)
Assessment
-
Patient is a 68-year-old male with previous history of aortic valve stenosis with mild to moderate aortic valve insufficiency with acute on chronic symptomatic shortness of breath with exertion, progressive. Underwent CAB/valve replacement/MAZE
01/08/2024 and postoperatively transferred to CVICU mechanical ventilation for further management.
s/p surgical aortic valve replacement with aortic root enlargement (Modified Lizandro) using bovine pericardial patch 01/08/24
s/p Left atrial maze, surgical ablation
s/p CABG x 1
Periop MV
Mild postoperative anemia, thrombocytopenia
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
WPW status post RFA x 2
History of prostate cancer 2008
Primary hypertension
Hyperlipidemia
[place]
Hematuria 2013
Obesity
KWABENA
Posterior soft tissue neck mass
RBBB/LAFB
Aflutter
Plan
S/p AVR/CAB/MAZE POD #0
Titrate off pressors per protocol
ECHO reviewed with normal function
PA catheter readings reviewed
Management of chest tubes per primary service
Intubated/sedated, initiate SAT when able
Pain control
RASS goal of 0 to -1
Intubated for procedure, SBT trial when patient able to spontaneously breath
Current vent settings: SIMV 600/16/60/8
ABG(s) reviewed--7.33/50 (chronic hypercarbia noted, likely with OHS)
History of KWABENA, can extubate to BIPAP if needed
CXR with no obvious opacities/infiltrates, low lung volumes, ETT in good position, lines/tubes in place
Extubate per protocol
Maintain supplement oxygen as needed
Prior history of pulmonary disease: KWABENA on PAP, resume nightly post extubation
No prior PFTs for review
Can add nebulizers if needed
Aspiration precautions
Encouraged incentive spirometry, OOB/ambulation/early mobility
Advance diet as tolerated following extubation
GI prophylaxis if indicated for mechanical ventilation >48 hours
Monitor critical I/O's
Matos/chest tube output
Hb/platelets postoperatively stable
Trend CBC for now
Can transfuse if indicated for Hb <7, plt <50 in surgical patients
DVT prophylaxis including SCDs
Insulin protocol initiated and ongoing
Transition to SQ/off as indicated per team
We will follow
Diagnostic Data
Chest X-Ray: 01/08/24- Endotracheal tube with tip in trachea above the babatunde. No findings to confirm pneumothorax.
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 A few small punctate metallic foci in the anterior mediastinum. Possibly related to previous surgical intervention or tiny calcified
lymph nodes. Fatty infiltration of liver. 10 mm left adrenal adenoma.
Chest CT 09/02/23- Lungs: Clear of an acute process. No pleural effusion.
[facility] 12/06/23- CONCLUSIONS
1. 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
2. Nonobstructive coronary disease
Echo: 01/08/24- Overall LVEF is approximately 60% with no RWMA. Severe concentric left ventricular hypertrophy. Stage I Diastolic dysfunction. Mean LVOT gradient measures 7 mmHg. Severe aortic stenosis. Moderate aortic insufficiency. RAYO calculates
to 1.0 cm2 by continuity equation. Max AV gradient measures 109 mmHg, mean is 61 mmHg. Trace mitral regurgitation. Mild scattered atheroma seen in the descending aorta.
PFT's:
Reports and relevant images were personally reviewed.
-----
Critical care time 50 mins -- this includes review of history, physical exam, medications, hemodynamic/ventilator parameters, laboratory data, imaging and discussion with house staff, pharmacy, respiratory therapy, physician gynecologist, and nursing.
[2024-01-08 15:06] LABS: Hematocrit 35.9 % (39.0-52.0); Hemoglobin 12.5 g/dL (13.0-18.0); Platelet Count 126 10^3/uL (130-400)
--- NOTE | 2024-01-08 15:14 | W.PN.CARDCBS ---
Addendum entered and electronically signed by Jak Lynn MD 01/08/24 16:31:
I saw and examined the patient.
The Cpa Tax's note was reviewed and I agree with the note.
Comment:
GEN: No distress, intubated/sedated
HEENT: supple, anicteric, mmm
LUNGS: scatt rhonchi
CV: Reg, S1/S2, no rub
ABD: soft, BS+, NT/ND
EXT: No edema
NEURO: Gross non-focal
SKIN: sternotomy
Plan:
Events of OR noted. Had allergic reaction to possibly iodine. Currently hemodynamically stable status post AVR, root enlargement, CABG, maze and left atrial appendage clip.
Wean pressors of Levophed and vasopressin.
Remains in sinus rhythm.
Continue supportive care.
Original Note:
Today's Communication / Plan
-
continue post op care
follow EKG
Impression / Plan
-
Primary Senior Operator: Dr. Green
Assessment:
Status post SAVR, aortic root enlargement, CAB x1 aorto to left radial to OM, LA MAZE, RELL clip 01/08/24
Anaphylactic shock after induction
Severe with mod AI
Anomalous circumflex artery
Chronic HFpEF
mod to severe LVH
Atrial flutter s/p ablation 08/2023
WPW s/p RF ablation 2007
Bifascicular block
HTN
HLD
DM2
GERD
Asthma
KWABENA on CPAP
Obesity
History of prostate cancer s/p prostatectomy
ECHO 10/02/23: EF 60 to 65%, severe with peak/mean gradient 76/48 mmHg, RAYO 1.1 cm�, no AR
Plan:
-Status post SAVR, aortic root enlargement, CAB x1 aorto to left radial to OM, MAZE, RELL clip 01/08/24. patient was noted to have anaphylaxis with shock shortly after induction. fortunately stabilized after benadryl, albuterol, steroids, pepcid, epi.
he was also noted to again become hypotensive with initiation of platelet infusion. ventricle was noted to be thick with LVOT gradient which did improve
-currently stable in cvicu
-intubated, sedated
-CI 2.0 on levo @8
-on cardene @2.5 due to radial graft
-for 2 FFP
-hgb 12.5, plts 126K
-EKG SR with bifascicular block, inferior T wave inversions, prolonged QTc
-continue post op care
-was on eliquis preoperatively.
-d/w CT surgical team
Progress Note - Senior Operator
Subjective
Date of Service: January 08, 2024
intubated, sedated
Objective
Labs:
Labs
Hgb 12.5 g/dL (13.0-18.0) L 01/08/24 14:47
Hct 35.9 % (39.0-52.0) L 01/08/24 14:47
Plt Count 126 10^3/uL (130-400) L 01/08/24 14:47
PT 14.3 Sec (11.4-14.6) 01/06/24 08:54
INR 1.10 01/06/24 08:54
APTT 32.8 Sec (23.4-35.0) 01/06/24 08:54
Sodium 140 mmol/L (135-145) 01/06/24 08:54
Potassium 4.5 mmol/L (3.5-5.1) 01/06/24 08:54
BUN 18 mg/dl (9-20) 01/06/24 08:54
Creatinine 0.7 mg/dL (0.7-1.3) 01/06/24 08:54
Glucose 119 mg/dl (70-99) H 01/06/24 08:54
Vital Signs and I&O:
Vital Signs
Temp Pulse Resp BP Pulse Ox
97.9 F 69 14 178/86 100
01/08/24 15:08 01/08/24 15:00 01/08/24 15:08 01/08/24 05:10 01/08/24 15:13
Vital Signs
Temp Pulse Resp BP Pulse Ox
97.9 F 69 14 178 100
01/08/24 15:08 01/08/24 15:00 01/08/24 15:08 01/08/24 05:10 01/08/24 15:13
Intake & Output
01/06/24 01/07/24 01/08/24 01/09/24
07:59 07:59 07:59 07:59
Intake Total 90.1 / 90.1
Output Total 155 / 155
Balance -64.9 / -64.9
Physical Exam
Physical Exam
GEN: No distress, intubated, sedated
HEENT: supple, mmm
LUNGS: CTA B/L, no wheezes/rales
CV: Reg, S1/S2, no murmur
EXT: No cyanosis, clubbing, edema
NEURO: sedated
SKIN: Warm, pink, dry. No rash. Sternotomy incision c/d/i. CTs in place. Temp wire in place
[2024-01-08 15:18] LABS: INR 1.66; PT 19.7 Sec (11.4-14.6)
[2024-01-08 15:19] LABS: APTT 31.8 Sec (23.4-35.0)
[2024-01-08 15:22] LABS: Blood Urea Nitrogen 14 mg/dl (9-20); Estimated Creatinine Clearance > 125 ml/min; Glucose 145 mg/dl (70-99)
--- NOTE | 2024-01-08 15:22 | W.PN.UPDATE ---
Update Note
Progress Note Update
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
and atrial flutter
IVF: 1800
U.O.:� 800
sarah saver:� 875
Blood:� 50cc platelets-stopped d/t reaction
Wires:� bipolar V-wire
Inotropes:�
Pressors:� vaso @ 0.03, Levophed @ 6, Cardene @ 2.5
Sedatives: Precedex @ 0.5, Insulin @ 1
OR events: hives, wheeze, anaphylactic reaction to Iodine>received steroid, Benadryl, Pepcid, Epi, Albuterol. GLIDESCOPE intubation
�
NEURO: sedated on Precedex, pupils +2mm B/L
RESP: #8OT @24cm> 550/60%/14/5. Lungs clear B/L. 2 mediastinal (80cc on arrival) chest tubes to -20cm suction. Sanguineous drainage
CV: RRR +S1, S2, no S3, no�rub, no murmur. Dermabond to median sternotomy. RIJ w/Glenelg locked @ 49cm. PA 38/19; CVP 15; C.O /CI XX
ABD: obese, round, soft, no BS
EXT: no edema, +2/4 DP pulses B/L, no femoral bruit, LUE PRASHANTH wrap intact; +2/4 left ulnar pulse; right radial A-line intact. No body rash noted
: Matos with punch color urine
�
A/P: POD #0 s/p aortic valve replacement #25 bioprosthetic with aortic root enlargement (Modified Lizandro) using bovine pericardial patch, left atrial maze, surgical ablation [RF ablation], Left atrial appendage exclusion [#35 mm clip], CABG x 1
[radial to OM]
LOGAN: EF 60% , no AI
- keep SBP<110mmHg x 24 hours
- wean and extubate
- will need instruction regarding antibiotic prophylaxis for dental and invasive procedures
- will need pre-DC TTE
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
�- s/p CABG w/radial harvest
- will require ASA/Plavix, beta-darrius, statin
- Ca+ darrius for radial patency x 3 months
# A-flutter
- maintaining SR w/bifasicular block
- -will require Eliquis
# acute surgical blood loss anemia-expected
- trend CBC
�
# T2DM (A1C 6.1)
- insulin infusion x 24h
- resume MFM when taking solids
- diabetic diet
�
--- NOTE | 2024-01-08 15:26 | PTCARENOTE ---
Received pt from [facility] at 1445; pt intubated and sedated; NSR on monitor and VSS; RIJ cordis, Grimes floated to 45, Right A-line, and PIV x1 all lines leveled and zeroed; Levo, Insulin, Precedex, Cardene, and Vaso infusing see flow sheet for details;
A/V wires in place and box turned off; Lungs diminished; ET 8 21 @ lip; SIMV 60%/ 600/8/14; CT x2 to -20 wall suction no air leak and no crepitus noted; hypoactive bowel sounds; Matos catheter draining blood tinged urine; palpable pulses throughout;
no edema noted; surgical sites C/D/I; see nursing documentation for further details.
CI 2.00
CO 4.71
SVR 971
--- NOTE | 2024-01-08 15:39 | PTCARENOTE ---
2 units of FFP ordered and 1 unit infusing at this time without difficulties; NSR on monitor and VSS.
[2024-01-08 15:58] LABS: Glucose - Point of Care 188 mg/dl (70-99)
[2024-01-08] MEDS: PACERONE PO (16:14)
[2024-01-08] MEDS: NEURONTIN PO ×2 (16:14→23:08)
[2024-01-08] MEDS: TYLENOL PO ×2 (16:14→23:08)
[2024-01-08] MEDS: NSS 500 IV (16:14)
[2024-01-08] MEDS: CALCIUM CHLORIDE 10% SYRINGE 50 ML IV (16:39)
[2024-01-08] MEDS: CALCIUM CHLORIDE 10% SYRINGE 50 MG IV (16:39)
[2024-01-08] MEDS: ANCEF 10 IV (16:44)
[2024-01-08] MEDS: ANCEF 15 MG IV (16:44)
[2024-01-08 17:00] LABS: Glucose - Point of Care 166 mg/dl (70-99)
[2024-01-08 17:06] LABS: Magnesium 2.1 mg/dl (1.6-2.3)
[2024-01-08] MEDS: OFIRMEV 100 IV (17:24)
--- NOTE | 2024-01-08 17:26 | PTCARENOTE ---
Respiratory at bedside and pt placed on CPAP.
[2024-01-08] MEDS: LIPITOR PO (17:38)
[2024-01-08 17:58] LABS: Glucose - Point of Care 163 mg/dl (70-99)
[2024-01-08 18:00] LABS: B.E. 0.2 mmol/L; Ionized Calcium 1.21 mMOL/L (1.15-1.33); O2 Saturation % 99.9 % (94-98); PCO2 46 mmHg (35-48); PO2 112 mmHg (83-108); Potassium 4.4 mMOL/L (3.5-5.1); Sodium 141 mMOL/L (136-145); pH 7.36 (7.35-7.45)
--- NOTE | 2024-01-08 18:15 | PTCARENOTE ---
ABGS reviewed with CV DEPARTMENT MGR, respiratory in room and pt extubated. Placed on 6L NC.
--- NOTE | 2024-01-08 18:16 | RESPNOTE ---
18:15 extubated patient and placed on 6L nasal cannula 96%
[2024-01-08 18:30] LABS: Hematocrit 32.7 % (39.0-52.0); Hemoglobin 11.5 g/dL (13.0-18.0); Platelet Count 120 10^3/uL (130-400)
[2024-01-08 18:55] LABS: Glucose - Point of Care 162 mg/dl (70-99)
--- NOTE | 2024-01-08 19:00 | PTCARENOTE ---
report received from previous RN, walking rounds done. pt in bed, drowsy but oriented x4, VICENTE equally. pt denies any pain at this time. NSR on monitor, HR 60's. RT radial and LT ulnar pulses palpable. B/L DP pulses palpable. heart tones clear.
Cardene gtt infusing for radial graft. Levo gtt infusing @ 4mcg, Vaso gtt infusing @ 0.02mcg. SBP 90's-100's. RT radial art line intact and positional at times. RIJ cordis + [place] intact w KVOs infusing. CVP~12-14. PAPs~30s-40s/10s. last CI 2.07.
epicardial wires intact and set to off. B/L breath sounds present, POX 95% on 6LNC. IS encouraged. CT x2 intact to -20cm wall suction, drainage WNL, no air leak present. palomino catheter intact, draining CYU, UO adequate. hypoactive bowel sounds
present. Insulin gtt infusing per glycemic protocol. all surgical sites stable. turning/repositioning pt Q2H and as needed. see worklist for full assessment, VS, and interventions. pt sleeping between care.
[2024-01-08] MEDS: ANCEF 5 IV (19:35)
[2024-01-08] MEDS: DILAUDID 0.5 MG IV (19:36)
[2024-01-08 20:13] LABS: Glucose - Point of Care 159 mg/dl (70-99)
[2024-01-08] MEDS: SENOKOT-S PO (20:54)
[2024-01-08] MEDS: LOW STRENGTH ASPIRIN 81 MG PO (20:59)
[2024-01-08] MEDS: ZOFRAN 4 MG IV (20:59)
[2024-01-08] MEDS: CARDENE 200 IV (21:15)
[2024-01-08] MEDS: LEVOPHED 250 IV (21:15)
[2024-01-08 22:18] LABS: Glucose - Point of Care 162 mg/dl (70-99)
--- NOTE | 2024-01-08 23:00 | PTCARENOTE ---
pt VSS, no changes in assessment. NSR 60's. last CI 2.27. POX 95% on CPAP w 6L. CT output and UO WNL. all surgical sites stable. Cardene, Levo, and Vaso gtts maintained at same rates. Insulin gtt maintained per protocol. pt sleeping between care.
[2024-01-08 23:58] LABS: Glucose - Point of Care 158 mg/dl (70-99)
[2024-01-09] VITALS (21 sets, daily range): BP systolic 81–158; BP diastolic 49–95; PULSE 76; O2SAT 94–96; BMI 39.2
[2024-01-09 01:05] LABS: Glucose - Point of Care 150 mg/dl (70-99)
--- NOTE | 2024-01-09 03:00 | PTCARENOTE ---
no acute changes in assessment, VSS. AM EKG shows accelerated junctional rhythm, CT PA aware. Cardene gtt remains @ 2.5mg. Levo gtt off. Vaso gtt remains @ 0.02mcg. last CI 2.42. POX 96% on 6LNC. IS encouraged. CT output and UO WNL. Insulin gtt
maintained. all surgical sites stable. AM labs drawn and sent. EKG done. pt resting between care.
[2024-01-09] MEDS: ANCEF 5 IV ×2 (03:01→11:49)
[2024-01-09] MEDS: DILAUDID 0.5 MG IV (03:01)
[2024-01-09 03:09] LABS: Glucose - Point of Care 141 mg/dl (70-99)
[2024-01-09 03:28] LABS: Hematocrit 30.6 % (39.0-52.0); Hemoglobin 10.7 g/dL (13.0-18.0); Mean Corpuscular Hgb 30.2 pg (27.0-31.0); Mean Corpuscular Volume 86.4 fL (80.0-94.0); Mean Platelet Volume 11.2 fL (7.4-10.4); Platelet Count 105 10^3/uL (130-400); Red Blood Cell Count 3.54 10^6/uL (4.70-6.10); Red Cell Dist. Width 12.9 % (11.5-14.5); White Blood Cell Count 12.6 10^3/uL (4.8-10.8)
[2024-01-09 03:51] LABS: Blood Urea Nitrogen 19 mg/dl (9-20); Calcium 8.4 mg/dl (8.4-10.2); Carbon Dioxide 31 mmol/L (22-30); Chloride 107 mmol/L (98-107); Estimated Creatinine Clearance 117 ml/min; Glucose 135 mg/dl (70-99); Potassium 4.9 mmol/L (3.5-5.1); Sodium 143 mmol/L (135-145); eGFR > 60.00
[2024-01-09 04:27] LABS: Glucose - Point of Care 122 mg/dl (70-99)
[2024-01-09] MEDS: TYLENOL 1000 MG PO ×3 (06:13→22:31)
[2024-01-09 06:20] LABS: Glucose - Point of Care 134 mg/dl (70-99)
[2024-01-09] MEDS: NOVOLIN R INSULIN INFUSION 100 IV (06:48)
--- NOTE | 2024-01-09 06:51 | W.PN.CT ---
Today's Communication / Plan
-
-pod #1
-no issues overnight
-CI 2.42, CO 5.70, SVR 701. Drips: Levo is off, Vasopressin 0.02, Insulin 3.5, Cardene 2.5 for radial graft
-CT output: 2 meds 220/370 in 12/24 hrs
-wean off drips as tolerated
-transition from Cardene to Norvasc for radial graft
-Amio and BB held while on pressors - resume when possible
-platelets are trending down - 105K today (120 on 01/07)- follow
-monitor rhythm (hx RBBB/LAFB preop)
-current meds (ASA, Plavix, Lipitor, Protonix)
Assessment / Plan
-
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
radial to OM]; Left atrial maze, surgical ablation [RF ablation]; LAAE with 35 mm clip on 01/08/[address] Spencer, pod #1
- Anaphylactic shock after induction, suspected to Betadine- required epinephrine, steroids, and Benadryl injections.
- Intraop LOGAN: LVEF 60-65% with mod-severe LVH preop. Following surgery, LVEF was 75%, extremely hyperdynamic. He had a very thick heart and initially had a flow gradient across the LVOT that slowly improved as his vasoplegia also improved. He did
require vasopressin coming off of cardiopulmonary bypass which is likely secondary to his anaphylactic shock. At the conclusion of the surgery he had no paravalvular leak, the mean gradient across his new bioprosthetic aortic valve was likely
inaccurate due to his hyperdynamic state. His left ventricular ejection fraction was at least 75% and a cardiac index was well over 3 at that time. There were no new regional wall motion abnormalities and he had excellent flow in his radial artery
bypass graft to the OM.
- Hypertension
- Hyperlipidemia
- Acute on chronic diastolic heart failure with moderate to moderately severe left ventricular hypertrophy
- Urkuh-Jgywjfdfj-Wlrex syndrome- status post RF ablation x2
- Paroxysmal atrial fibrillation- status post ablation
- Pre-existing RBBB/LAFB
- Class 2 obesity (BMI of 38)
- Obstructive sleep apnea, on CPAP
- Nonobstructive coronary artery disease
- Anomalous coronary arteries
- Prostate CA 2009
- Anaphylaxis with iodine
- Acute postop blood loss anemia
- Acute postop thrombocytopenia/coagulopathy -s/p 2 FFPs, 1 unit platelets
- Acute postop atelectasis
- Acute postop hypovolemia with subsequent hypervolemia
Discussed patient care with: Nursing and Care Team
Subjective
Procedure
- s/p Surgical aortic valve replacement with aortic root enlargement (Modified Lizandro) using bovine pericardial patch; CABG x 1 [aorto to left radial to OM]; Left atrial maze, surgical ablation [RF ablation]; LAAE with 35 mm clip on 01/08/[address] Spencer
-
Date of Service: January 09, 2024
Objective Data
-
PT 19.7 Sec (11.4-14.6) H 01/08/24 14:47
INR 1.66 01/08/24 14:47
APTT 31.8 Sec (23.4-35.0) 01/08/24 14:47
Vital Signs
Vital Signs
Temp Pulse Resp BP Pulse Ox
98.8 F 65 10 115/64 91
01/09/24 00:00 01/08/24 23:55 01/08/24 23:55 01/08/24 23:00 01/08/24 23:[address]
CT Intake/Output/Weight
01/08/24 01/08/24 01/09/24
06:59 18:59 06:59
Intake Total 581.7 / 866.7 285.0 / 866.7
Output Total 710 / 1100 390 / 1100
Balance -128.3 / -233.3 -105.0 / -233.3
SaO2: 91
Physical Exam
-
General: Awake and AOx3
Cardiovascular: Regular rate & rhythm, No Murmurs and No Rub
Respiratory: Decreased Breath Sounds (no wheeze)
Sternum: Stable
Incision: Clean, Dry and Intact
Extremities: Edema +1 (1+ DP b/l)
Abdomen: soft, nontender, nondistended + bowel sounds
Data Reviewed
-
Lab Results: Results Reviewed
Medications: Active Meds Reviewed
Chest X-Ray: Report Reviewed and Image Reviewed
ECG: Report Reviewed and Image Reviewed
--- NOTE | 2024-01-09 07:26 | PTCARENOTE ---
Received pt from slot shift supervisor RN; pt AAOx3 and resting comfortably in bed; Junctional on monitor and VSS; A/V epicardial wires in place and box turned off; Kenny Dupree floated to 45, Right A-line and PIV x1 all lines leveled and zeroed; Insulin,
Cardene and Vaso infusing see flow sheet for details; Lungs diminished with bilateral wheezing; IS to 750; CT x2 to -20 wall suction no air leak and no crepitus noted; hypoactive bowel sounds; Matos catheter draining clear yellow urine; palpable
pulses throughout; trace generalized edema noted; surgical sites C/D/I; see nursing documentation for further details.
--- NOTE | 2024-01-09 07:39 | W.PN.ANS.POP ---
Anesthesia Post Operative
- Anesthesia Post Op Note
Vital Signs Stable-See Nursing Note: Yes
Airway Patent: Yes
Adequate Pain Control: Yes
Change in Mental Status: No
Current Postoperative Nausea & Vomiting: No
Anesthesia Complications: No
General Anesthetic Recall: No
Unplanned Admission: No
Post Op Hydration Adequate: Yes
[2024-01-09 08:06] LABS: Glucose - Point of Care 139 mg/dl (70-99)
[2024-01-09] MEDS: NORVASC 2.5 MG PO (08:31)
[2024-01-09] MEDS: LOW STRENGTH ASPIRIN 81 MG PO (08:31)
[2024-01-09] MEDS: NEURONTIN 100 MG PO ×3 (08:31→22:31)
[2024-01-09] MEDS: VITAMIN C 500 MG PO (08:31)
[2024-01-09] MEDS: PROTONIX 40 MG PO (08:31)
[2024-01-09] MEDS: LIDOCAINE 4% PATCH 1 PATCH TOPICAL (08:31)
[2024-01-09] MEDS: PLAVIX 75 MG PO (08:31)
[2024-01-09] MEDS: FEOSOL 325 MG PO (08:31)
[2024-01-09] MEDS: SENOKOT-S 1 TABLET PO ×2 (08:31→20:15)
[2024-01-09] MEDS: MAGNESIUM OXIDE 500 MG PO ×2 (08:31→20:15)
[2024-01-09] MEDS: BACTROBAN 2% OINTMENT 1 APPLIC NASAL ×2 (08:32→20:13)
--- NOTE | 2024-01-09 08:38 | PTCARENOTE ---
Norvasc given and Cardene turned off per order.
[2024-01-09] MEDS: ProAIR HFA INHALER 2 PUFF INH (08:52)
[2024-01-09 09:25] LABS: Glucose - Point of Care 135 mg/dl (70-99)
[2024-01-09 10:02] LABS: Glucose - Point of Care 137 mg/dl (70-99)
--- NOTE | 2024-01-09 10:04 | W.PN.CARDCBS ---
Addendum entered and electronically signed by Jak Lynn MD 01/09/24 10:22:
I saw and examined the patient.
The Design Engineering Technician's note was reviewed and I agree with the note.
Comment:
GEN: No distress, awake, Ox3
HEENT: supple, anicteric, mmm
LUNGS: CTA, no wheezes/rales
CV: Reg, S1/S2, no murmur
ABD: soft, BS+, NT/ND
EXT: No edema
NEURO: Gross non-focal
SKIN: sternotomy
Plan:
He is overall doing well after allergic reaction yesterday.
Now off all pressors and blood pressure is stable.
Hemoglobin at 10.7.
Continue amiodarone and metoprolol. He remains in sinus rhythm.
Original Note:
Today's Communication / Plan
-
continue post op care
in SR
Impression / Plan
-
Primary Blacktop Spreader: Dr. Green
Assessment:
Status post SAVR, aortic root enlargement, CAB x1 aorto to left radial to OM, LA MAZE, RELL clip 01/08/24
Anaphylactic shock after induction
Severe with mod AI
Anomalous circumflex artery
Chronic HFpEF
mod to severe LVH
Atrial flutter s/p ablation 08/2023
WPW s/p RF ablation 2007
Bifascicular block
HTN
HLD
DM2
GERD
Asthma
KWABENA on CPAP
Obesity
History of prostate cancer s/p prostatectomy
ECHO 10/02/23: EF 60 to 65%, severe with peak/mean gradient 76/48 mmHg, RAYO 1.1 cm�, no AR
Plan:
-Status post SAVR, aortic root enlargement, CAB x1 aorto to left radial to OM, MAZE, RELL clip 01/08/24. patient was noted to have anaphylaxis with shock shortly after induction. fortunately stabilized after benadryl, albuterol, steroids, pepcid, epi.
he was also noted to again become hypotensive with initiation of platelet infusion. ventricle was noted to be thick with LVOT gradient which did improve
-on vasopressin @0.01. to be weaned off this AM
-off cardene, now on po norvasc for radial graft
-wean supp O2
-s/p 2 FFP 01/08
-hgb 10.7, plts 105K
-remains in SR with improved QTc on review of tele overnight. (pre op had RBBB/LAFB)
-continue post op care
-was on eliquis preoperatively. RELL with clip noted to be totally occlusive by intraop LOGAN
-d/w nursing
Progress Note - Blacktop Spreader
Subjective
Date of Service: January 09, 2024
Reports feeling better than he thought he would. Reports his pain is well-controlled.
Objective
Labs:
01/09/24 03:04
01/09/24 03:04
Labs
Hgb 10.7 g/dL (13.0-18.0) L 01/09/24 03:04
Hct 30.6 % (39.0-52.0) L 01/09/24 03:04
Plt Count 105 10^3/uL (130-400) L 01/09/24 03:04
PT 19.7 Sec (11.4-14.6) H 01/08/24 14:47
INR 1.66 01/08/24 14:47
APTT 31.8 Sec (23.4-35.0) 01/08/24 14:47
Sodium 143 mmol/L (135-145) 01/09/24 03:04
Potassium 4.9 mmol/L (3.5-5.1) 01/09/24 03:04
BUN 19 mg/dl (9-20) 01/09/24 03:04
Creatinine 0.8 mg/dL (0.7-1.3) 01/09/24 03:04
Glucose 135 mg/dl (70-99) H 01/09/24 03:04
Vital Signs and I&O:
Vital Signs
Temp Pulse Resp BP Pulse Ox
99 F 75 14 116/66 95
01/09/24 10:00 01/09/24 10:00 01/09/24 10:00 01/09/24 10:00 01/09/24 10:00
Vital Signs
Temp Pulse Resp BP Pulse Ox
99 F 75 14 116/66 95
01/09/24 10:00 01/09/24 10:00 01/09/24 10:00 01/09/24 10:00 01/09/24 10:00
Intake & Output
01/07/24 01/08/24 01/09/24 01/10/24
07:59 07:59 07:59 07:59
Intake Total 1205.2 / 1244.7 94.5 / 94.5
Output Total 1540 / 1585 155 / 155
Balance -334.8 / -340.3 -60.5 / -60.5
Physical Exam
Physical Exam
GEN: No distress, awake, alert, oriented x3. obese. on supp O2
HEENT: supple, anicteric, mmm, eomi
LUNGS: Decreased BS B/L, no wheezes
CV: Reg, S1/S2, no murmur
EXT: No cyanosis, clubbing. 1+ edema of B/L LE
NEURO: Gross non-focal
SKIN: Warm, pink, dry. No rash. Sternotomy dressing c/d/i. CTs in place.
[2024-01-09 11:03] LABS: Glucose - Point of Care 125 mg/dl (70-99)
--- NOTE | 2024-01-09 11:41 | PTCARENOTE ---
Right A-line and Garwood Mary removed per order; Cardiac rehab in room with pt; Matos catheter removed.
[2024-01-09] MEDS: LOPRESSOR 12.5 MG PO ×2 (11:49→20:14)
[2024-01-09 12:07] LABS: Glucose - Point of Care 148 mg/dl (70-99)
--- NOTE | 2024-01-09 12:47 | CM ---
CM following for DC planning needs.
Met w/ patient at bedside. Pt. reports that he is feeling okay.
Pt. is from home w/ spouse. He's functionally indep. at baseline w/ ADLs, mobility.
Antic. DC to home with CT Transitional Care RN.
CM to follow.
--- NOTE | 2024-01-09 13:15 | W.PN.INTV ---
Today's Communication / Plan
Recommendations
Doing well post extubation
Transitioning off insulin gtt
Continue further postop care, pain control
Encouraged OOB/IS, PT
Can likely transfer to tele once off gtts, we will sign off upon transfer
Assessment
-
Patient is a 68-year-old male with previous history of aortic valve stenosis with mild to moderate aortic valve insufficiency with acute on chronic symptomatic shortness of breath with exertion, progressive. Underwent CAB/valve replacement/MAZE
01/08/2024 and postoperatively transferred to CVICU mechanical ventilation for further management.
s/p surgical aortic valve replacement with aortic root enlargement (Modified Lizandro) using bovine pericardial patch 01/08/24
s/p Left atrial maze, surgical ablation
s/p CABG x 1
Periop MV
Mild postoperative anemia, thrombocytopenia
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
WPW status post RFA x 2
History of prostate cancer 2008
Primary hypertension
Hyperlipidemia
[place]
Hematuria 2013
Obesity
KWABENA
Posterior soft tissue neck mass
RBBB/LAFB
Aflutter
Plan
S/p AVR/CAB/MAZE POD #1
Off pressors
ECHO reviewed with normal function
Management of chest tubes per primary service
Pain control
RASS goal of 0 to -1
Intubated for procedure, extubated and doing well
ABG(s) reviewed-- (chronic hypercarbia noted, likely with OHS)
History of KWABENA, can extubate to BIPAP if needed
CXR with stable postop changes
Extubate per protocol
Maintain supplement oxygen as needed
Prior history of pulmonary disease: KWABENA on PAP, resume nightly
No prior PFTs for review
Can add nebulizers if needed
Aspiration precautions
Encouraged incentive spirometry, OOB/ambulation/early mobility
Advance diet as tolerated following extubation
GI prophylaxis if indicated for mechanical ventilation >48 hours
Monitor critical I/O's
Matos/chest tube output
Hb/platelets postoperatively stable
Trend CBC for now
Can transfuse if indicated for Hb <7, plt <50 in surgical patients
DVT prophylaxis including SCDs
Insulin protocol initiated
Transition to SQ/off as indicated per team
Diagnostic Data
Chest X-Ray: 01/08/24- Endotracheal tube with tip in trachea above the babatunde. No findings to confirm pneumothorax.
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 A few small punctate metallic foci in the anterior mediastinum. Possibly related to previous surgical intervention or tiny calcified
lymph nodes. Fatty infiltration of liver. 10 mm left adrenal adenoma.
Chest CT 09/02/23- Lungs: Clear of an acute process. No pleural effusion.
C 12/06/23- CONCLUSIONS
1. 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
2. Nonobstructive coronary disease
Echo: 01/08/24- Overall LVEF is approximately 60% with no RWMA. Severe concentric left ventricular hypertrophy. Stage I Diastolic dysfunction. Mean LVOT gradient measures 7 mmHg. Severe aortic stenosis. Moderate aortic insufficiency. RAYO calculates
to 1.0 cm2 by continuity equation. Max AV gradient measures 109 mmHg, mean is 61 mmHg. Trace mitral regurgitation. Mild scattered atheroma seen in the descending aorta.
PFT's:
Reports and relevant images were personally reviewed.
-----
Critical care time 31 mins -- this includes review of history, physical exam, medications, hemodynamic/ventilator parameters, laboratory data, imaging and discussion with house staff, pharmacy, respiratory therapy, combination welder, and nursing.
Subjective Dataa
Subjective Data
Date of Service:
Date of Service: January 09, 2024
Chief Complaint: Building Code Administrator Follow Up
Subjective:
Doing well, no acute events ON
Stable on RA, sitting in chair
Pain is minimal
Objective Data
Data Reviewed
Vital Signs / I&O / Oxygen:
Vital Signs
Temp Pulse Resp BP Pulse Ox
99.0 F 78 18 130/65 94
01/09/24 12:00 01/09/24 12:00 01/09/24 12:00 01/09/24 11:55 01/09/24 13:01
Intake and Output
01/08/24 01/09/24 01/10/24
06:59 06:59 06:59
Intake Total 1162.7 / 1205.2 189.0 / 189.0
Output Total 1480 / 1540 280 / 280
Balance -317.3 / -334.8 -91.0 / -91.0
SaO2 [CPAP] 99
SaO2 [SIMV] 100
SaO2 94
Nasal Cannula flow liters per 6
minute
Physical Exam
General: Comfortable and Other (NAD)
HEENT: Normocephalic, Anicteric and Moist Mucous Membranes
Cardiovascular: S1-S2 and Regular Rhythm
Respiratory: Clear, Non-Labored Respirations and Chest Tube
GI: Soft, Non Distended and Non Tender
Neurology: Awake, Alert, Oriented, AO x 3 and No Motor Deficits
Skin: Warm, Dry and Good Color
Labs/Micro/Reports
Lab Data
01/09/24 03:04
01/09/24 03:04
Laboratory Results
01/08/24 01/08/24
14:47 17:55
PT 19.7 H
INR 1.66
APTT 31.8
pH 7.33 L 7.36
pCO2 50 H 46
pO2 169 H 112 H
HCO3 26.4 26.0
O2 Delivery Level
Microbiology
01/06/24 08:54 Nose MRSA Screen - Final
No Methicillin Resistant Staphylococcus aureus isolated.
[2024-01-09 13:21] LABS: Glucose - Point of Care 141 mg/dl (70-99)
[2024-01-09] MEDS: MUCINEX 1200 MG PO (13:47)
[2024-01-09] MEDS: NSS IV (13:48)
[2024-01-09 15:05] LABS: Glucose - Point of Care 122 mg/dl (70-99)
--- NOTE | 2024-01-09 16:19 | PTCARENOTE ---
Junctional on monitor and VSS; assessment unchanged and pt resting comfortably in chair.
[2024-01-09] MEDS: LIPITOR 20 MG PO (17:08)
[2024-01-09 17:16] LABS: Glucose - Point of Care 168 mg/dl (70-99)
[2024-01-09] MEDS: NOVOLOG FLEXPEN-MODERATE RESISTANCE 1 UNITS SC (17:19)
[2024-01-09 19:11] LABS: Hepatitis C Antibody Reactive (Negative)
[2024-01-09] MEDS: MUCINEX 600 MG PO (20:15)
--- NOTE | 2024-01-09 20:30 | PTCARENOTE ---
Patient received OOB in chair watching television. Patient A+A+Ox3. No neurological deficits noted. Patient assisted to bed with assist x2. No c/o headache, dizziness or lightheadedness. Patient voided 200 ml chris urine. O2 at 2L via NC.
SaO2 93%. Two Mediastinal chest tubes - Intact and patent - 20-40ml red drainage - No air leak, tidaling or crepitus noted. Chest tube dressing intact. Accelerated Junctional Rhythm. Heart rate 70's. No c/o chest pain, pressure or discomfort.
Abdomen soft, round, obese. Normoactive bowel sounds. No BM. Positive flatus. No c/o nausea. No vomiting. Left radial incision intact - Edema - Positive Ulnar Pulse - Positive circulation, sensation and mobility to left upper extremity.
Sternal incision intact - Surgical adhesive - Open to air. Bilateral lower extremity edema - Positive pulses. Patient with no c/o back or flank pain. Right I.J. Cordis intact and patent - Saline 10 ml/hr. Assessment as documented.
[2024-01-09] MEDS: ROXICODONE 5 MG PO (22:30)
[2024-01-09] MEDS: PACERONE 200 MG PO (22:31)
[2024-01-09] MEDS: DILAUDID 0.25 MG IV (22:31)
[2024-01-09 22:44] LABS: Glucose - Point of Care 186 mg/dl (70-99)
--- NOTE | 2024-01-09 23:30 | PTCARENOTE ---
Pain management IV Dilaudid 0.25mg and Roxicodone 5mg PO. Heart rate 60-70's. Blood pressure 144/70 (87). Patient voided 100 ml light chris urine. Mediastinal chest tubes - 10 ml red drainage. AV wires connected to box - Pacemaker off. Patient
wearing Home CPAP at . Patient now sleeping without difficulty. Assessment as documented.
[2024-01-10] VITALS (21 sets, daily range): BP systolic 103–152; BP diastolic 62–98; PULSE 66; O2SAT 95–96; BMI 41.2
[2024-01-10] MEDS: ROXICODONE 5 MG PO (02:40)
--- NOTE | 2024-01-10 03:00 | PTCARENOTE ---
Patient rang call garcia - c/o sternal pain. Roxicodone 5 mg PO administered. Patient resting in bed. CPAP on. Patient's cardiac/vascular sonographer later displayed 6 beat run VT. Patient with no c/o chest pain, pressure, palpitations or discomfort. No
further changes from previous assessment.
[2024-01-10] MEDS: NSS 500 IV (04:09)
[2024-01-10 04:29] LABS: Hematocrit 28.9 % (39.0-52.0); Hemoglobin 9.7 g/dL (13.0-18.0); Mean Corp Hgb Conc. 33.6 g/dL (33.0-37.0); Mean Corpuscular Hgb 29.9 pg (27.0-31.0); Mean Corpuscular Volume 89.2 fL (80.0-94.0); Mean Platelet Volume 11.9 fL (7.4-10.4); Platelet Count 68 10^3/uL (130-400); Red Blood Cell Count 3.24 10^6/uL (4.70-6.10); Red Cell Dist. Width 13.2 % (11.5-14.5)
--- NOTE | 2024-01-10 04:30 | PTCARENOTE ---
Patient sleeping. CPAP on. Voided 100 ml light chris urine. AM lab work collected and sent. Patient OOB in AM. Assessment/Interventions as documented.
[2024-01-10 04:53] LABS: Blood Urea Nitrogen 36 mg/dl (9-20); Calcium 8.3 mg/dl (8.4-10.2); Carbon Dioxide 30 mmol/L (22-30); Chloride 98 mmol/L (98-107); Estimated Creatinine Clearance 117 ml/min; Glucose 173 mg/dl (70-99); Magnesium 2.7 mg/dl (1.6-2.3); Potassium 4.7 mmol/L (3.5-5.1); Sodium 135 mmol/L (135-145); eGFR > 60.00
[2024-01-10] MEDS: DILAUDID 0.25 MG IV (05:50)
[2024-01-10] MEDS: TYLENOL 1000 MG PO ×3 (05:50→22:39)
--- NOTE | 2024-01-10 06:56 | W.PN.CT ---
Today's Communication / Plan
-
-pod #2
-no issues overnight
-CT output: 2 meds 110/285 in 12/24 hrs
-monitor rhythm - suspect accelerated junctional 60s-70s
-follow platelets- 68K today (105 on 01/08 and 120 on 01/07)
-wt is up ? 20 lbs from preop - diurese
-Cr ok - 0.8
-current meds (ASA, Plavix, Amio, Lopressor, Norvasc for radial graft, Lipitor, Protonix)
-encourage IS, OOB
Assessment / Plan
-
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
radial to OM]; Left atrial maze, surgical ablation [RF ablation]; LAAE with 35 mm clip on 01/08/[address] Spencer, pod #2
- Anaphylactic shock after induction, suspected to Betadine- required epinephrine, steroids, and Benadryl injections.
- Intraop LOGAN: LVEF 60-65% with mod-severe LVH preop. Following surgery, LVEF was 75%, extremely hyperdynamic. He had a very thick heart and initially had a flow gradient across the LVOT that slowly improved as his vasoplegia also improved. He did
require vasopressin coming off of cardiopulmonary bypass which is likely secondary to his anaphylactic shock. At the conclusion of the surgery he had no paravalvular leak, the mean gradient across his new bioprosthetic aortic valve was likely
inaccurate due to his hyperdynamic state. His left ventricular ejection fraction was at least 75% and a cardiac index was well over 3 at that time. There were no new regional wall motion abnormalities and he had excellent flow in his radial artery
bypass graft to the OM.
- Hypertension
- Hyperlipidemia
- Acute on chronic diastolic heart failure with moderate to moderately severe left ventricular hypertrophy
- Myryb-Kexsoseew-Slsga syndrome- status post RF ablation x2
- Paroxysmal atrial fibrillation- status post ablation
- Pre-existing RBBB/LAFB
- Class 2 obesity (BMI of 38)
- Obstructive sleep apnea, on CPAP
- Nonobstructive coronary artery disease
- Anomalous coronary arteries
- Prostate CA 2009
- Anaphylaxis with iodine
- Acute postop blood loss anemia
- Acute postop thrombocytopenia/coagulopathy -s/p 2 FFPs, 1 unit platelets
- Acute postop atelectasis
- Acute postop hypovolemia with subsequent hypervolemia
Discussed patient care with: Nursing and Care Team
Subjective
Procedure
- s/p Surgical aortic valve replacement with aortic root enlargement (Modified Lizandro) using bovine pericardial patch; CABG x 1 [aorto to left radial to OM]; Left atrial maze, surgical ablation [RF ablation]; LAAE with 35 mm clip on 01/08/[address] Spencer
-
Date of Service: January 10, 2024
Objective Data
-
PT 19.7 Sec (11.4-14.6) H 01/08/24 14:47
INR 1.66 01/08/24 14:47
APTT 31.8 Sec (23.4-35.0) 01/08/24 14:47
Vital Signs
Vital Signs
Temp Pulse Resp BP Pulse Ox
97.9 F 66 16 144/70 92
01/09/24 22:25 01/09/24 23:15 01/09/24 22:25 01/09/24 22:31 01/09/24 22:25
CT Intake/Output/Weight
01/09/24 01/09/24 01/10/24
06:59 18:59 06:59
Intake Total 581.0 / 1205.2 239.0 / 779.0 540 / 779.0
Output Total 770 / 1540 350 / 720 370 / 720
Balance -189.0 / -334.8 -111.0 / 59.0 170 / 59.0
SaO2: 92
Physical Exam
-
General: Awake and AOx3
Cardiovascular: Regular rate & rhythm, No Murmurs and No Rub
Respiratory: Decreased Breath Sounds (no wheeze)
Sternum: Stable
Incision: Clean, Dry and Intact
Abdomen: soft, nontender, nondistended + bowel sounds
Extremities: Edema +1 (1+ DP b/l)
Data Reviewed
-
Lab Results: Results Reviewed
Medications: Active Meds Reviewed
Chest X-Ray: Report Reviewed and Image Reviewed
ECG: Report Reviewed and Image Reviewed
--- NOTE | 2024-01-10 07:29 | PTCARENOTE ---
Received pt from tablet technician RN; PT AAOx3 and resting comfortably in chair; Junctional on monitor and VSS; Epicardial A/V wires in place and box turned off; RIJ cordis and PIV x1 patent; Lungs coarse and diminished; IS 500; CT x2 to -20 wall suction
no air leak and no crepitus noted; hypoactive bowel sounds; pt voiding yellow urine; weak pulses throughout; +1 generalized edema noted; surgical sites C/D/I; see nursing documentation for further details.
--- NOTE | 2024-01-10 07:41 | ECGCV ---
[facility] PIRES 911 TELECOMMUNICATOR notified of ECG critical value identified by electronic interpretation on ECG completed on 01/10/2024 0740.
[2024-01-10] MEDS: ProAIR HFA INHALER 2 PUFF INH ×2 (08:19→14:30)
--- NOTE | 2024-01-10 08:20 | PTCARENOTE ---
A and V wires pulled by CV MANAGEMENT ACCOUNTS MANAGER.
--- NOTE | 2024-01-10 08:21 | W.PN.UPDATE ---
Update Note
Progress Note Update
Patient junctional with rate of [address] Spencer. 2 atrial wires and 1 bipolar ventricular wires removed without difficulty. Patient will remain on bedrest x 1 hour with vital signs every 15 minutes x 4.
[2024-01-10] MEDS: LOW STRENGTH ASPIRIN 81 MG PO (08:46)
[2024-01-10] MEDS: VITAMIN C 500 MG PO (08:46)
[2024-01-10] MEDS: PLAVIX 75 MG PO (08:46)
[2024-01-10] MEDS: PROTONIX 40 MG PO (08:46)
[2024-01-10] MEDS: MUCINEX 600 MG PO ×2 (08:46→19:54)
[2024-01-10] MEDS: BACTROBAN 2% OINTMENT 1 APPLIC NASAL ×2 (08:47→19:53)
[2024-01-10] MEDS: NORVASC 2.5 MG PO (08:47)
[2024-01-10] MEDS: SENOKOT-S 1 TABLET PO ×2 (08:47→19:54)
[2024-01-10] MEDS: LIDOCAINE 4% PATCH 1 PATCH TOPICAL (08:47)
[2024-01-10] MEDS: LASIX 40 MG IV ×2 (08:47→14:45)
[2024-01-10] MEDS: NEURONTIN 100 MG PO (08:47)
[2024-01-10] MEDS: FEOSOL 325 MG PO (08:47)
[2024-01-10] MEDS: NOVOLOG FLEXPEN-MODERATE RESISTANCE 1 UNITS SC (08:56)
[2024-01-10 08:59] LABS: Glucose - Point of Care 192 mg/dl (70-99)
--- NOTE | 2024-01-10 10:06 | PTCARENOTE ---
Mediastinal chest tubes X2 removed per CV SENIOR TERADATA DEVELOPER order; Junctional on monitor and VSS; Cardiac rehab in with pt.
--- NOTE | 2024-01-10 11:35 | W.PN.CARDCBS ---
Addendum entered and electronically signed by Jak Lynn MD 01/10/24 11:48:
I saw and examined the patient.
The Cellophane Tester's note was reviewed and I agree with the note.
Comment:
GEN: No distress, awake, Ox3
HEENT: supple, anicteric, mmm
LUNGS: scatt rhonchi
CV: Reg, S1/S2, no murmur/rub
ABD: soft, BS+, NT/ND
EXT: No edema
NEURO: Gross non-focal
SKIN: sternotomy
Plan:
remains in sinus. Weight is up.
Would diurese
Cont Amiodarone/Metoprolol
ASA/Plavix
Original Note:
Today's Communication / Plan
-
diuresis
follow plts
follow rhythm. consider increasing norvasc for BP control if needed
Impression / Plan
-
Primary Rf Test Engineer: Dr. Green
Assessment:
Status post SAVR, aortic root enlargement, CAB x1 aorto to left radial to OM, LA MAZE, RELL clip 01/08/24
Anaphylactic shock after induction
Severe with mod AI
Anomalous circumflex artery
Chronic HFpEF
mod to severe LVH
Atrial flutter s/p ablation 08/2023
WPW s/p RF ablation 2007
Bifascicular block
HTN
HLD
DM2
GERD
Asthma
KWABENA on CPAP
Obesity
History of prostate cancer s/p prostatectomy
ECHO 10/02/23: EF 60 to 65%, severe with peak/mean gradient 76/48 mmHg, RAYO 1.1 cm�, no AR
Plan:
-Status post SAVR, aortic root enlargement, CAB x1 aorto to left radial to OM, MAZE, RELL clip 01/08/24. patient was noted to have anaphylaxis with shock shortly after induction. fortunately stabilized after benadryl, albuterol, steroids, pepcid, epi.
he was also noted to again become hypotensive with initiation of platelet infusion. ventricle was noted to be thick with LVOT gradient which did improve
-was noted to have some junctional rhythm around the time of CT pull. now back in SR, 1 6-beat run of NSVT overnight. lopressor was held however now resumed at higher dose of 25mg BID. follow on tele
-also with evidence of likely pericarditis by EKG this AM. he has chronic RBBB/LAFB predating surgery
-BPs elevated. discussed with CT surgery increasing norvasc (started for radial graft) as will not cause bradycardia but will give BP benefit
-wean supp O2. weight up 20 pounds if accurate. s/p IV lasix 40mg today.
-s/p 2 FFP 01/08
-hgb 9.7, plts 65K. monitoring at present
-continue post op care
-was on eliquis preoperatively. RELL with clip noted to be totally occlusive by intraop LOGAN
-d/w nursing
Progress Note - Rf Test Engineer
Subjective
Date of Service: January 10, 2024
reports feeling fatigued
Objective
Labs:
01/10/24 04:14
01/10/24 04:14
Labs
Hgb 9.7 g/dL (13.0-18.0) L 01/10/24 04:14
Hct 28.9 % (39.0-52.0) L 01/10/24 04:14
Plt Count 68 10^3/uL (130-400) L D 01/10/24 04:14
PT 19.7 Sec (11.4-14.6) H 01/08/24 14:47
INR 1.66 01/08/24 14:47
APTT 31.8 Sec (23.4-35.0) 01/08/24 14:47
Sodium 135 mmol/L (135-145) D 01/10/24 04:14
Potassium 4.7 mmol/L (3.5-5.1) 01/10/24 04:14
BUN 36 mg/dl (9-20) H 01/10/24 04:14
Creatinine 0.8 mg/dL (0.7-1.3) 01/10/24 04:14
Glucose 173 mg/dl (70-99) H 01/10/24 04:14
Vital Signs and I&O:
Vital Signs
Temp Pulse Resp BP Pulse Ox
99.1 F 68 22 140/73 94
01/10/24 07:52 01/10/24 10:00 01/10/24 08:23 01/10/24 10:00 01/10/24 10:00
Vital Signs
Temp Pulse Resp BP Pulse Ox
99.1 F 68 22 140/73 94
01/10/24 07:52 01/10/24 10:00 01/10/24 08:23 01/10/24 10:00 01/10/24 10:00
Intake & Output
01/08/24 01/09/24 01/10/24 01/11/24
07:59 07:59 07:59 07:59
Intake Total 1205.2 / 1244.7 1036.5 / 1036.5 40 / 40
Output Total 1540 / 1585 910 / 910 425 / 425
Balance -334.8 / -340.3 126.5 / 126.5 -385 / -385
Physical Exam
Physical Exam
GEN: No distress, awake, alert, oriented x3. obese. on supp O2. sitting in chair
HEENT: supple, anicteric, mmm, eomi
LUNGS: Decreased BS B/L, no wheezes
CV: Reg, S1/S2, no murmur
EXT: No cyanosis, clubbing. 1+ edema of B/L LE
NEURO: Gross non-focal
SKIN: Warm, pink, dry. No rash. Sternotomy dressing c/d/i.
[2024-01-10] MEDS: LOPRESSOR 25 MG PO (11:45)
[2024-01-10 11:55] LABS: Glucose - Point of Care 205 mg/dl (70-99)
--- NOTE | 2024-01-10 12:11 | PTCARENOTE ---
Junctional on monitor and VSS; assessment unchanged and pt resting comfortably in chair.
[2024-01-10] MEDS: NOVOLOG FLEXPEN-MODERATE RESISTANCE 3 UNITS SC (12:34)
--- NOTE | 2024-01-10 14:31 | CM ---
CM following for DC planning needs.
Met w/ patient at bedside.
Pt. reports that he is feeling well.
DC plan reviewed; anticipated DC plan is for home w/ CT Transitional Care RN.
CM to follow.
[2024-01-10] MEDS: KCL 20 MEQ PO (14:45)
[2024-01-10] MEDS: PACERONE 200 MG PO ×2 (16:20→22:38)
[2024-01-10] MEDS: LIPITOR 20 MG PO (16:21)
[2024-01-10] MEDS: NOVOLOG FLEXPEN-MODERATE RESISTANCE SC (17:21)
--- NOTE | 2024-01-10 17:37 | PTCARENOTE ---
Resting in chair. VSS Assessment unchanged from prior.
[2024-01-10 18:03] LABS: Platelet Antibody, Direct IgG Negative (Negative); Platelet Antibody, Direct IgM Negative (Negative)
[2024-01-10] MEDS: SYMBICORT 160/4.5 MCG INHALER 2 PUFF INH (19:54)
[2024-01-10] MEDS: DUONEB 3 ML INH (19:54)
--- NOTE | 2024-01-10 20:30 | PTCARENOTE ---
Patient received OOB in chair. Patient A+A+Ox3. No neurological deficits noted. Patient assisted to bed. O2 at 4L via NC. SaO2 95%. Patient with Mild MUJICA. Expiratory wheeze noted after getting into bed. PA for CT Surgery, Eloina Median
PAMarty, in room. Respiratory TX ordered - Respiratory Therapist arrived and administered DuoNeb TX. After TX, patient with harsh, vigorous cough - Large, thick tannish secretions. No s/s of respiratory distress. Sinus Rhythm with BBC. Heart rate
60's-70's. Blood pressure 124/74 (88). Patient with no c/o chest pain, pressure or discomfort. Normoactive bowel sounds. No BM. Positive flatus. No c/o nausea. No vomiting. Voiding without difficulty. Patient with no c/o back or flank pain.
Right I.J. Cordis - Intact and patent - Saline flush 10 ml/hr. Sternal incision intact - Surgical adhesive - Open to air. Left radial site - Incision intact - Surgical adhesive - Positive Ulnar pulse. Left brachial site intact. Chest tube
dressing intact. Generalized edema. Positive, palpable pulses. Assessment as documented.
[2024-01-10 22:44] LABS: Glucose - Point of Care 181 mg/dl (70-99)
[2024-01-11] VITALS (15 sets, daily range): BP systolic 122–197; BP diastolic 63–125; PULSE 83; O2SAT 93–98; BMI 40.8
--- NOTE | 2024-01-11 | PTCARENOTE ---
Patient sleeping without difficulty. No further changes from previous assessment.
[2024-01-11] MEDS: DUONEB 3 ML INH (02:59)
--- NOTE | 2024-01-11 04:00 | PTCARENOTE ---
Patient A+A+Ox3. No neurological deficits noted. Patient with coughing episode. Thick tannish,white,clear secretions. O2 4L via NC. SaO2 95%. DuoNeb Treatment administered by respiratory therapist. Patient's linens and chest tube dressing
changed. Teeth brushed. AM lab work collected and sent. Patient back to sleep. Assessment/Interventions as documented.
[2024-01-11 04:24] LABS: Hematocrit 26.9 % (39.0-52.0); Hemoglobin 9.3 g/dL (13.0-18.0); Mean Corp Hgb Conc. 34.6 g/dL (33.0-37.0); Mean Corpuscular Hgb 30.4 pg (27.0-31.0); Mean Corpuscular Volume 87.9 fL (80.0-94.0); Mean Platelet Volume 12.5 fL (7.4-10.4); Platelet Count 62 10^3/uL (130-400); Red Blood Cell Count 3.06 10^6/uL (4.70-6.10); White Blood Cell Count 9.8 10^3/uL (4.8-10.8)
[2024-01-11 04:50] LABS: Blood Urea Nitrogen 30 mg/dl (9-20); Calcium 8.2 mg/dl (8.4-10.2); Carbon Dioxide 36 mmol/L (22-30); Chloride 94 mmol/L (98-107); Estimated Creatinine Clearance 120 ml/min; Glucose 148 mg/dl (70-99); Magnesium 2.7 mg/dl (1.6-2.3); Potassium 3.8 mmol/L (3.5-5.1); Sodium 134 mmol/L (135-145); eGFR > 60.00
--- NOTE | 2024-01-11 06:09 | W.PN.CT ---
Addendum entered and electronically signed by Syd Adams MD 01/11/24 09:10:
I saw and examined the patient.
The PA's note was reviewed and I agree with the note.
Comment:
POD#3 s/p AVR/CABG
Wheezing w/ symbicort & duonebs. Otherwise no issues.
- D/C BB and amiodarone, start verapamil (radial graft)
- Continue ASA - trend PLTs
- OOB/IS/ambulate
- D/C planning 1-2 days
Original Note:
Today's Communication / Plan
-
-pod #3
-wheezing last night- better with Duoneb and Symbicort, held pm Lopressor
-productive cough- continue Mucinex, IS (750-1000 so far). Tm 99.9, wbc nl
-in nsr 60s this am
-follow platelets- 62K today (68K on 01/09, 105 on 01/08 and 120 on 01/07)
-diuresed 1550+ with bid Lasix 01/09. Bicarb is elevated - ? Diamox
-Cr ok - 0.8
-gave 40 po KCl in am
-current meds (ASA, Plavix, Amio, Lopressor, Norvasc for radial graft, Lipitor, Protonix)
-encourage IS, OOB
Assessment / Plan
-
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
radial to OM]; Left atrial maze, surgical ablation [RF ablation]; LAAE with 35 mm clip on 01/08/[address] Spencer, pod #3
- Anaphylactic shock after induction, suspected to Betadine- required epinephrine, steroids, and Benadryl injections.
- Intraop LOGAN: LVEF 60-65% with mod-severe LVH preop. Following surgery, LVEF was 75%, extremely hyperdynamic. He had a very thick heart and initially had a flow gradient across the LVOT that slowly improved as his vasoplegia also improved. He did
require vasopressin coming off of cardiopulmonary bypass which is likely secondary to his anaphylactic shock. At the conclusion of the surgery he had no paravalvular leak, the mean gradient across his new bioprosthetic aortic valve was likely
inaccurate due to his hyperdynamic state. His left ventricular ejection fraction was at least 75% and a cardiac index was well over 3 at that time. There were no new regional wall motion abnormalities and he had excellent flow in his radial artery
bypass graft to the OM.
- Hypertension
- Hyperlipidemia
- Acute on chronic diastolic heart failure with moderate to moderately severe left ventricular hypertrophy
- Fhphb-Utvopaese-Vjewo syndrome- status post RF ablation x2
- Paroxysmal atrial fibrillation- status post ablation
- Pre-existing RBBB/LAFB
- Class 2 obesity (BMI of 38)
- Obstructive sleep apnea, on CPAP
- Nonobstructive coronary artery disease
- Anomalous coronary arteries
- Prostate CA 2009
- Anaphylaxis with iodine
- Acute postop blood loss anemia
- Acute postop thrombocytopenia/coagulopathy -s/p 2 FFPs, 1 unit platelets
- Acute postop atelectasis
- Acute postop hypovolemia with subsequent hypervolemia
- Acute postop wheezing- diurese, nebs
Discussed patient care with: Nursing and Care Team
Subjective
Procedure
- s/p Surgical aortic valve replacement with aortic root enlargement (Modified Lizandro) using bovine pericardial patch; CABG x 1 [aorto to left radial to OM]; Left atrial maze, surgical ablation [RF ablation]; LAAE with 35 mm clip on 01/08/[address] Spencer
-
Date of Service: January 11, 2024
Objective Data
-
Lab Results
01/11/24 03:42
01/11/24 03:42
PT 19.7 Sec (11.4-14.6) H 01/08/24 14:47
INR 1.66 01/08/24 14:47
APTT 31.8 Sec (23.4-35.0) 01/08/24 14:47
Vital Signs
Vital Signs
Temp Pulse Resp BP Pulse Ox
99.2 F 74 16 134/73 95
01/11/24 03:30 01/11/24 03:45 01/11/24 03:30 01/11/24 03:30 01/11/24 03:45
CT Intake/Output/Weight
01/10/24 01/10/24 01/11/24
06:59 18:59 06:59
Intake Total 840 / 1079.0 40 / 380 340 / 380
Output Total 610 / 960 1585 / 2260 675 / 2260
Balance 230 / 119.0 -1545 / -1880 -335 / -1880
SaO2: 95
Physical Exam
-
General: Awake and AOx3
Cardiovascular: Regular rate & rhythm, No Murmurs and No Rub
Respiratory: Decreased Breath Sounds, crackles at bases, wheezing b/l
Sternum: Stable
Incision: Clean, Dry and Intact
Abdomen: soft, nontender, nondistended, + bowel sounds
Extremities: Edema +1 (1+ DP b/l)
Data Reviewed
-
Lab Results: Results Reviewed
Medications: Active Meds Reviewed
Chest X-Ray: Report Reviewed and Image Reviewed
ECG: Report Reviewed and Image Reviewed
[2024-01-11] MEDS: TYLENOL 1000 MG PO ×3 (06:49→19:56)
[2024-01-11] MEDS: ProAIR HFA INHALER 2 PUFF INH ×2 (07:23→18:35)
[2024-01-11] MEDS: SYMBICORT 160/4.5 MCG INHALER 2 PUFF INH ×2 (07:23→18:35)
[2024-01-11 07:49] LABS: Glucose - Point of Care 180 mg/dl (70-99)
[2024-01-11] MEDS: PLAVIX 75 MG PO (08:32)
[2024-01-11] MEDS: LIDOCAINE 4% PATCH 1 PATCH TOPICAL (08:32)
[2024-01-11] MEDS: FEOSOL 325 MG PO (08:33)
[2024-01-11] MEDS: PACERONE 200 MG PO (08:33)
[2024-01-11] MEDS: LOW STRENGTH ASPIRIN 81 MG PO (08:33)
[2024-01-11] MEDS: MUCINEX 600 MG PO ×2 (08:33→19:56)
[2024-01-11] MEDS: PROTONIX 40 MG PO (08:33)
[2024-01-11] MEDS: SENOKOT-S 1 TABLET PO ×2 (08:33→19:56)
[2024-01-11] MEDS: VITAMIN C 500 MG PO (08:33)
[2024-01-11] MEDS: LASIX 40 MG IV ×2 (08:34→13:28)
[2024-01-11] MEDS: NOVOLOG FLEXPEN-MODERATE RESISTANCE 1 UNITS SC ×3 (08:34→17:37)
[2024-01-11] MEDS: DIAMOX 250 MG PO ×2 (08:36→13:27)
[2024-01-11] MEDS: CALCIUM CHLORIDE 10% SYRINGE 60 MG IV (08:37)
--- NOTE | 2024-01-11 09:18 | PTCARENOTE ---
Patient received from scene shifter resting oob in chair, AAO X 3, states pain controlled. NSR, SaO2 @ 93% on 4lnc. RIJ Cordis w/kvo infusing. All procedural sites stable. Patient updated to plan of care for the day, in agreement. See work list for
full assessment and interventions performed.
[2024-01-11] MEDS: KCL 40 MEQ PO ×4 (09:22→19:56)
[2024-01-11] MEDS: BACTROBAN 2% OINTMENT 1 APPLIC NASAL ×2 (09:22→19:56)
[2024-01-11] MEDS: CALAN EXTENDED RELEASE 120 MG PO (09:22)
--- NOTE | 2024-01-11 09:49 | W.PN.CARDCBS ---
Addendum entered and electronically signed by Jak Lynn MD 01/11/24 12:20:
I saw and examined the patient.
The Thermal Engineer's note was reviewed and I agree with the note.
Comment:
GEN: No distress, awake, Ox3
HEENT: supple, anicteric, mmm
LUNGS: scatt rhonchi
CV: Reg, S1/S2, no murmur
ABD: soft, BS+, NT/ND
EXT: No edema
NEURO: Gross non-focal
SKIN: sternotomy
Plan:
Cont diuresis
cont verapamil
Creat 0.8. Hg 9.3
in sinus
cont ASA/Plavix
Original Note:
Today's Communication / Plan
-
replete K+
Lopressor and Norvasc d/lupe, replaced w/ Verapamil
Enc IS
follow on tele
Continue IV diuresis
Impression / Plan
-
Primary Bit Grinder: Dr. Green
Assessment:
Status post SAVR, aortic root enlargement, CABG x1 aorto to left radial to OM, LA MAZE, RELL clip 01/08/24
Anaphylactic shock after induction
Severe with mod AI
Anomalous circumflex artery
Chronic HFpEF
mod to severe LVH
Atrial flutter s/p ablation 08/2023
WPW s/p RF ablation 2007
Bifascicular block
HTN
HLD
DM2
GERD
Asthma
KWABENA on CPAP
Obesity
History of prostate cancer s/p prostatectomy
ECHO 10/02/23: EF 60 to 65%, severe with peak/mean gradient 76/48 mmHg, ARYO 1.1 cm�, no AR
Plan:
-Severe : Status post SAVR, aortic root enlargement, CAB x1 aorto to left radial to OM, MAZE, RELL clip 01/08/24. POD#3
-patient was noted to have anaphylaxis with shock shortly after induction. fortunately stabilized after benadryl, albuterol, steroids, pepcid, epi. he was also noted to again become hypotensive with initiation of platelet infusion.
-Patient noted to have wheezing overnight. Improved w/ Symbicort and DuoNebs.
-Beta-darrius discontinued 01/11/24 secondary to wheezing. Replaced with verapamil given radial graft
-was noted to have some junctional rhythm around the time of CT pull. Plus a 6-beat run of NSVT 01/10/24. Resumed on Lopressor however developed wheezing and Lopressor and Norvasc now discontinued. Replaced with verapamil.
-Continue to follow on tele
-also with evidence of likely pericarditis by EKG on ECG 01/10/24. Patient has pericardial rub. Denies chest pain. Discussed colchicine with CT surgery but will hold for now.
-He has chronic RBBB/LAFB predating surgery
-BPs elevated. discussed with CT surgery increasing norvasc (started for radial graft) as will not cause bradycardia but will give BP benefit
-Weight up approximately 14 pounds since admission. However down 3 pounds overnight. Continue diuresis with IV Lasix.
-Replete potassium, 3.8
-Currently on 3 L of oxygen. Wean as tolerated. Continue nebulizer and Symbicort
-s/p 2 FFP 01/08
-hgb 9.8, plts 62K. monitoring at present
-continue post op care
-was on eliquis preoperatively. RELL with clip noted to be totally occlusive by intraop LOGAN
-d/w nursing
Progress Note - Bit Grinder
Subjective
Date of Service: January 11, 2024
Patient seen and examined. Sitting in chair. Mild sternal pain and some dizziness with ambulating.
Objective
Labs:
01/11/24 03:42
01/11/24 03:42
Labs
Hgb 9.3 g/dL (13.0-18.0) L 01/11/24 03:42
Hct 26.9 % (39.0-52.0) L 01/11/24 03:42
Plt Count 62 10^3/uL (130-400) L 01/11/24 03:42
PT 19.7 Sec (11.4-14.6) H 01/08/24 14:47
INR 1.66 01/08/24 14:47
APTT 31.8 Sec (23.4-35.0) 01/08/24 14:47
Sodium 134 mmol/L (135-145) L 01/11/24 03:42
Potassium 3.8 mmol/L (3.5-5.1) 01/11/24 03:42
BUN 30 mg/dl (9-20) H 01/11/24 03:42
Creatinine 0.8 mg/dL (0.7-1.3) 01/11/24 03:42
Glucose 148 mg/dl (70-99) H 01/11/24 03:42
Vital Signs and I&O:
Vital Signs
Temp Pulse Resp BP Pulse Ox
98.5 F 77 16 147/69 93
01/11/24 08:46 01/11/24 09:22 01/11/24 08:46 01/11/24 09:22 01/11/24 09:40
Vital Signs
Temp Pulse Resp BP Pulse Ox
98.5 F 77 16 147/69 93
01/11/24 08:46 01/11/24 09:22 01/11/24 08:46 01/11/24 09:22 01/11/24 09:40
Intake & Output
01/09/24 01/10/24 01/11/24 01/12/24
06:59 06:59 06:59 06:59
Intake Total 1162.7 / 1205.2 1079.0 / 1079.0 400 / 400 280 / 280
Output Total 1480 / 1540 960 / 960 2610 / 2610 925 / 925
Balance -317.3 / -334.8 119.0 / 119.0 -2210 / -2210 -645 / -645
Physical Exam
Physical Exam
GEN: No distress, awake, Ox3; sitting in chair
HEENT: supple, anicteric, mmm
LUNGS: crackles at bilateral bases, no wheezes/rales
CV: Reg, S1/S2, +rub, no murmur, gallops
ABD: soft, BS+, NT/ND
EXT: +1 edema bilaterally
NEURO: Gross non-focal
SKIN: No rash, warm, dry
[2024-01-11 11:49] LABS: Glucose - Point of Care 188 mg/dl (70-99)
--- NOTE | 2024-01-11 11:50 | PTCARENOTE ---
VS obtained, assessment stable. at bedside for visit. Patient remains oob, awaiting lunch.
[2024-01-11] MEDS: NSS IV (13:44)
--- NOTE | 2024-01-11 16:06 | PTCARENOTE ---
VS obtained, assessment stable. Patient resting comfortably, good response to diuresis - states breathing feels 'easier'.
[2024-01-11 17:02] LABS: Glucose - Point of Care 166 mg/dl (70-99)
[2024-01-11 17:14] LABS: Blood Urea Nitrogen 25 mg/dl (9-20); Calcium 8.5 mg/dl (8.4-10.2); Chloride 95 mmol/L (98-107); Estimated Creatinine Clearance 106 ml/min; Glucose 134 mg/dl (70-99); Potassium 3.5 mmol/L (3.5-5.1); Sodium 134 mmol/L (135-145); eGFR > 60.00
[2024-01-11 17:24] LABS: Carbon Dioxide 31 mmol/L (22-30)
[2024-01-11] MEDS: GLUCOPHAGE 500 MG PO (17:36)
[2024-01-11] MEDS: LIPITOR 20 MG PO (17:36)
[2024-01-11 17:50] LABS: Magnesium 2.4 mg/dl (1.6-2.3)
--- NOTE | 2024-01-11 20:00 | PTCARENOTE ---
assumed care of pt from previous RN. pt A&Ox4, resting in chair at time of assessment. rhythm appears junctional/accel junctional on tele-monitor. POX 96% on 3 L NC. abd s/n, round, obese. +BS. pt voiding clear, yellow urine in urinal. all surgical
sites stable, CDI. R IJ cordis w/ KVO. PIV intact. pt ambulated in hallway w/ this RN w/ 4 L NC, mild MUJICA. pt assisted back to bed. call garcia in reach. see worklist for complete nursing assessment, interventions, VS, & I&Os.
[2024-01-12] VITALS (7 sets, daily range): BP systolic 123–150; BP diastolic 64–79; PULSE 69; O2SAT 93; BMI 40.2
--- NOTE | 2024-01-12 00:15 | PTCARENOTE ---
assessment remains unchanged. VSS. rhythm between SR and junctional.
[2024-01-12 04:21] LABS: Hematocrit 25.9 % (39.0-52.0); Hemoglobin 8.8 g/dL (13.0-18.0); Mean Corpuscular Hgb 31.1 pg (27.0-31.0); Mean Corpuscular Volume 91.5 fL (80.0-94.0); Mean Platelet Volume 12.1 fL (7.4-10.4); Platelet Count 69 10^3/uL (130-400); Red Blood Cell Count 2.83 10^6/uL (4.70-6.10); Red Cell Dist. Width 13.1 % (11.5-14.5); White Blood Cell Count 8.3 10^3/uL (4.8-10.8)
[2024-01-12] MEDS: VENTOLIN NEBULES 2.5 MG INH ×5 (04:27→19:52)
[2024-01-12] MEDS: MYLICON 80 MG PO (04:36)
[2024-01-12] MEDS: MILK OF MAGNESIA 30 ML PO (04:36)
--- NOTE | 2024-01-12 04:40 | PTCARENOTE ---
VSS. AM labs collected and sent. RT administered prn breathing treatment for wheezing. pt c/o gas pain and constipation. MOM and simethicone to be given.
[2024-01-12 04:46] LABS: Blood Urea Nitrogen 25 mg/dl (9-20); Calcium 8.4 mg/dl (8.4-10.2); Carbon Dioxide 29 mmol/L (22-30); Chloride 100 mmol/L (98-107); Estimated Creatinine Clearance 119 ml/min; Glucose 116 mg/dl (70-99); Magnesium 2.2 mg/dl (1.6-2.3); Sodium 134 mmol/L (135-145); eGFR > 60.00
--- NOTE | 2024-01-12 05:39 | W.PN.CT ---
Addendum entered and electronically signed by Syd Adams MD 01/12/24 11:10:
I saw and examined the patient.
The PA's note was reviewed and I agree with the note.
Comment:
POD#4
Diuresed well post lasix BID. Wheezing improved on albuterol q4h
OOB/ambulating well
- Potential D/C tomorrow
Original Note:
Today's Communication / Plan
-
-pod #4
-wheezing again last night- better s/p Duoneb and Symbicort, Lopressor stopped previously
-remains in NSR
-follow platelets- 62K -> 69K today, ASA continued, plavix restarted
-UOP 675/3700 in 12/24 hrs
-current meds (ASA, Plavix, Amio, Lopressor, verapamil for radial graft, Lipitor, Protonix, Feosol, Symbicort, metformin)
-encourage IS, OOB
Assessment / Plan
-
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
radial to OM]; Left atrial maze, surgical ablation [RF ablation]; LAAE with 35 mm clip on 01/08/[address] Spencer, pod #4
- Anaphylactic shock after induction, suspected to Betadine- required epinephrine, steroids, and Benadryl injections.
- Intraop LOGAN: LVEF 60-65% with mod-severe LVH preop. Following surgery, LVEF was 75%, extremely hyperdynamic. He had a very thick heart and initially had a flow gradient across the LVOT that slowly improved as his vasoplegia also improved. He did
require vasopressin coming off of cardiopulmonary bypass which is likely secondary to his anaphylactic shock. At the conclusion of the surgery he had no paravalvular leak, the mean gradient across his new bioprosthetic aortic valve was likely
inaccurate due to his hyperdynamic state. His left ventricular ejection fraction was at least 75% and a cardiac index was well over 3 at that time. There were no new regional wall motion abnormalities and he had excellent flow in his radial artery
bypass graft to the OM.
- Hypertension
- Hyperlipidemia
- Acute on chronic diastolic heart failure with moderate to moderately severe left ventricular hypertrophy
- Ieagk-Racvunryz-Zptgp syndrome- status post RF ablation x2
- Paroxysmal atrial fibrillation- status post ablation
- Pre-existing RBBB/LAFB
- Class 2 obesity (BMI of 38)
- Obstructive sleep apnea, on CPAP
- Nonobstructive coronary artery disease
- Anomalous coronary arteries
- Prostate CA 2009
- Anaphylaxis with iodine
- Acute postop blood loss anemia
- Acute postop thrombocytopenia/coagulopathy -s/p 2 FFPs, 1 unit platelets
- Acute postop atelectasis
- Acute postop hypovolemia with subsequent hypervolemia
- Acute postop wheezing- diurese, nebs
Subjective
Procedure
- s/p Surgical aortic valve replacement with aortic root enlargement (Modified Lizandro) using bovine pericardial patch; CABG x 1 [aorto to left radial to OM]; Left atrial maze, surgical ablation [RF ablation]; LAAE with 35 mm clip on 01/08/[address] Spencer
-
Date of Service: January 12, 2024
Objective Data
-
Lab Results
01/12/24 04:11
01/12/24 04:11
PT 19.7 Sec (11.4-14.6) H 01/08/24 14:47
INR 1.66 01/08/24 14:47
APTT 31.8 Sec (23.4-35.0) 01/08/24 14:47
Vital Signs
Vital Signs
Temp Pulse Resp BP Pulse Ox
98.1 F 65 18 129/64 95
01/12/24 00:00 01/12/24 04:29 01/12/24 04:29 01/12/24 04:08 01/12/24 04:29
CT Intake/Output/Weight
01/11/24 01/11/24 01/12/24
06:59 18:59 06:59
Intake Total 360 / 400 600 / 720 120 / 720
Output Total 1025 / 2610 3025 / 3700 675 / 3700
Balance -665 / -2210 -2425 / -2980 -555 / -2980
SaO2: 95
Physical Exam
-
General: Awake and Oriented
Cardiovascular: Regular rate & rhythm, No Murmurs and No Rub
Respiratory: Equal
Sternum: Stable
Incision: Clean and Dressing Intact
Extremities: Edema +1 and No Erythema
Data Reviewed
-
Lab Results: Results Reviewed
Medications: Active Meds Reviewed
Chest X-Ray: Report Reviewed
ECG: Report Reviewed
[2024-01-12] MEDS: TYLENOL 1000 MG PO ×2 (06:19→19:49)
[2024-01-12] MEDS: SYMBICORT 160/4.5 MCG INHALER 2 PUFF INH ×2 (07:16→19:52)
[2024-01-12 07:25] LABS: Glucose - Point of Care 154 mg/dl (70-99)
[2024-01-12] MEDS: LOW STRENGTH ASPIRIN 81 MG PO (07:48)
[2024-01-12] MEDS: MUCINEX 600 MG PO ×2 (07:48→19:49)
[2024-01-12] MEDS: CALAN EXTENDED RELEASE 120 MG PO ×2 (07:49→19:49)
[2024-01-12] MEDS: LASIX 40 MG IV ×2 (07:49→15:48)
[2024-01-12] MEDS: PROTONIX 40 MG PO (07:49)
[2024-01-12] MEDS: PLAVIX 75 MG PO (07:49)
[2024-01-12] MEDS: VITAMIN C 500 MG PO (07:50)
[2024-01-12] MEDS: NOVOLOG FLEXPEN-MODERATE RESISTANCE 1 UNITS SC ×2 (07:50→12:12)
[2024-01-12] MEDS: KCL 40 MEQ PO ×2 (07:50→15:47)
[2024-01-12] MEDS: SENOKOT-S 1 TABLET PO (07:50)
[2024-01-12] MEDS: FEOSOL 325 MG PO (07:50)
[2024-01-12] MEDS: ZAROXOLYN 5 MG PO ×2 (07:54→15:47)
[2024-01-12] MEDS: DULCOLAX 10 MG PO (07:54)
[2024-01-12] MEDS: LIDOCAINE 4% PATCH TOPICAL (08:00)
[2024-01-12] MEDS: BACTROBAN 2% OINTMENT 1 APPLIC NASAL (08:00)
--- NOTE | 2024-01-12 08:00 | PTCARENOTE ---
Patient received from overnight houseperson resting oob in chair, denies pain, awaiting breakfast. NSR via cm, SaO2 @ 96% on 2lnc. RIJ Cordis w/kvo infusing. All procedural sites stable. Patient updated to plan of care, in agreement. See work list for full
assessment and interventions performed.
[2024-01-12] MEDS: VENTOLIN NEBULES INH (08:18)
--- NOTE | 2024-01-12 11:09 | W.PN.CARDCBS ---
Today's Communication / Plan
-
Continue with diuresis. Hemoglobin down to 8.8 and continue to follow. Platelet count overall stable at 69,000.
Will increase verapamil to 120 twice daily.
Continue aspirin and Plavix for now.
Increase activity
Impression / Plan
-
Primary Die Filer: Dr. Green
Assessment:
Status post SAVR, aortic root enlargement, CABG x1 aorto to left radial to OM, LA MAZE, RELL clip 01/08/24
Anaphylactic shock after induction
Severe with mod AI
Anomalous circumflex artery
Chronic HFpEF
mod to severe LVH
Atrial flutter s/p ablation 08/2023
WPW s/p RF ablation 2007
Bifascicular block
HTN
HLD
DM2
GERD
Asthma
KWABENA on CPAP
Obesity
History of prostate cancer s/p prostatectomy
ECHO 10/02/23: EF 60 to 65%, severe with peak/mean gradient 76/48 mmHg, RAYO 1.1 cm�, no AR
Plan:
-Severe : Status post SAVR, aortic root enlargement, CAB x1 aorto to left radial to OM, MAZE, RELL clip 01/08/24. POD#3
-patient was noted to have anaphylaxis with shock shortly after induction. fortunately stabilized after benadryl, albuterol, steroids, pepcid, epi. he was also noted to again become hypotensive with initiation of platelet infusion.
-Patient noted to have wheezing overnight. Improved w/ Symbicort and DuoNebs.
-Beta-darrius discontinued 01/11/24 secondary to wheezing. Replaced with verapamil given radial graft
-was noted to have some junctional rhythm around the time of CT pull. Plus a 6-beat run of NSVT 01/10/24. Resumed on Lopressor however developed wheezing and Lopressor and Norvasc now discontinued. Replaced with verapamil.
-Continue to follow on tele
-also with evidence of likely pericarditis by EKG on ECG 01/10/24. Patient has pericardial rub. Denies chest pain. Discussed colchicine with CT surgery but will hold for now.
-He has chronic RBBB/LAFB predating surgery
-BPs elevated. discussed with CT surgery increasing norvasc (started for radial graft) as will not cause bradycardia but will give BP benefit
-Weight improving. Continue diuresis with IV Lasix.
-Replete potassium, 3.8
- Continue nebulizer and Symbicort
-s/p 2 FFP 01/08
-hgb 9.8, plts 628K. monitoring at present
-continue post op care
-was on eliquis preoperatively. RELL with clip noted to be totally occlusive by intraop LOGAN
Progress Note - Die Filer
Subjective
Date of Service: January 12, 2024
Breathing continues to slowly improve. Denies chest pains. Does still have some occasional wheezing.
Objective
Labs:
01/12/24 04:11
01/12/24 04:11
Labs
Hgb 8.8 g/dL (13.0-18.0) L 01/12/24 04:11
Hct 25.9 % (39.0-52.0) L 01/12/24 04:11
Plt Count 69 10^3/uL (130-400) L 01/12/24 04:11
PT 19.7 Sec (11.4-14.6) H 01/08/24 14:47
INR 1.66 01/08/24 14:47
APTT 31.8 Sec (23.4-35.0) 01/08/24 14:47
Sodium 134 mmol/L (135-145) L 01/12/24 04:11
Potassium 4.0 mmol/L (3.5-5.1) 01/12/24 04:11
BUN 25 mg/dl (9-20) H 01/12/24 04:11
Creatinine 0.8 mg/dL (0.7-1.3) 01/12/24 04:11
Glucose 116 mg/dl (70-99) H 01/12/24 04:11
Vital Signs and I&O:
Vital Signs
Temp Pulse Resp BP Pulse Ox
98.5 F 77 15 150/72 96
01/12/24 07:26 01/12/24 08:00 01/12/24 07:26 01/12/24 07:54 01/12/24 07:43
Vital Signs
Temp Pulse Resp BP Pulse Ox
98.5 F 77 15 150/72 96
01/12/24 07:26 01/12/24 08:00 01/12/24 07:26 01/12/24 07:54 01/12/24 07:43
Intake & Output
01/10/24 01/11/24 01/12/24 01/13/24
06:59 06:59 06:59 06:59
Intake Total 1079.0 / 1079.0 400 / 400 720 / 720 300 / 300
Output Total 960 / 960 2610 / 2610 4200 / 4200 1100 / 1100
Balance 119.0 / 119.0 -2210 / -2210 -3480 / -3480 -800 / -800
Physical Exam
Physical Exam
GEN: No distress, awake, Ox3
HEENT: supple, anicteric, mmm
LUNGS: CTA, no wheezes/rales
CV: Reg, S1/S2, 1/6 syst LSB, no gallop
ABD: soft, BS+, NT/ND
EXT: No edema
NEURO: Gross non-focal
SKIN: sternotomy
--- NOTE | 2024-01-12 11:15 | PTCARENOTE ---
VS obtained, stable. Good response to Lasix noted. at bedside for visit.
[2024-01-12] MEDS: NSS 500 IV (11:26)
[2024-01-12 11:57] LABS: Glucose - Point of Care 171 mg/dl (70-99)
[2024-01-12] MEDS: TYLENOL PO (14:40)
[2024-01-12 16:59] LABS: Glucose - Point of Care 149 mg/dl (70-99)
[2024-01-12] MEDS: NOVOLOG FLEXPEN-MODERATE RESISTANCE SC (17:14)
[2024-01-12] MEDS: GLUCOPHAGE 500 MG PO (17:14)
[2024-01-12] MEDS: LIPITOR 20 MG PO (17:15)
[2024-01-12] MEDS: SENOKOT-S PO (19:49)
--- NOTE | 2024-01-12 20:00 | PTCARENOTE ---
assumed care of pt from previous RN. pt A&Ox4, resting in chair at time of assessment. SR on tele-monitor. POX 95% on RA. pt voiding clear, yellow urine in urinal. all surgical sites stable, CDI. R IJ cordis w/ KVO. PIV intact. pt assisted back to
bed after assessment.
[2024-01-13] VITALS (8 sets, daily range): BP systolic 117–155; BP diastolic 61–73; PULSE 70; O2SAT 97–98; BMI 39.0
--- NOTE | 2024-01-13 04:00 | PTCARENOTE ---
assessment remains unchanged. VSS. home CPAP on w/ 2 L O2. AM labs collected and sent.
[2024-01-13 04:18] LABS: Hematocrit 25.9 % (39.0-52.0); Hemoglobin 8.8 g/dL (13.0-18.0); Mean Corpuscular Hgb 29.7 pg (27.0-31.0); Mean Corpuscular Volume 87.5 fL (80.0-94.0); Mean Platelet Volume 11.6 fL (7.4-10.4); Platelet Count 104 10^3/uL (130-400); Red Blood Cell Count 2.96 10^6/uL (4.70-6.10); Red Cell Dist. Width 13.2 % (11.5-14.5); White Blood Cell Count 6.6 10^3/uL (4.8-10.8)
[2024-01-13 04:54] LABS: Blood Urea Nitrogen 24 mg/dl (9-20); Calcium 8.8 mg/dl (8.4-10.2); Carbon Dioxide 30 mmol/L (22-30); Chloride 98 mmol/L (98-107); Estimated Creatinine Clearance 118 ml/min; Glucose 128 mg/dl (70-99); Potassium 3.4 mmol/L (3.5-5.1); Sodium 136 mmol/L (135-145); eGFR > 60.00
--- NOTE | 2024-01-13 05:16 | W.PN.CT ---
Today's Communication / Plan
-
-pod #5
-Verapamil increased to 120 mg BID, tolerating
-Diuresed with furosemide and metolazone yesterday
-remains in NSR
-follow platelets- 69K -> 104K today, ASA/plavix continued
-current meds (ASA, Plavix, Amio, Lopressor, verapamil for radial graft, Lipitor, Protonix, Feosol, Symbicort, metformin)
-encourage IS, OOB
-DC planning
Assessment / Plan
-
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
radial to OM]; Left atrial maze, surgical ablation [RF ablation]; LAAE with 35 mm clip on 01/08/[address] Spencer, pod #5
- Anaphylactic shock after induction, suspected to Betadine- required epinephrine, steroids, and Benadryl injections.
- Intraop LOGAN: LVEF 60-65% with mod-severe LVH preop. Following surgery, LVEF was 75%, extremely hyperdynamic. He had a very thick heart and initially had a flow gradient across the LVOT that slowly improved as his vasoplegia also improved. He did
require vasopressin coming off of cardiopulmonary bypass which is likely secondary to his anaphylactic shock. At the conclusion of the surgery he had no paravalvular leak, the mean gradient across his new bioprosthetic aortic valve was likely
inaccurate due to his hyperdynamic state. His left ventricular ejection fraction was at least 75% and a cardiac index was well over 3 at that time. There were no new regional wall motion abnormalities and he had excellent flow in his radial artery
bypass graft to the OM.
- Hypertension
- Hyperlipidemia
- Acute on chronic diastolic heart failure with moderate to moderately severe left ventricular hypertrophy
- Naqzu-Cdejjcxpk-Fmaka syndrome- status post RF ablation x2
- Paroxysmal atrial fibrillation- status post ablation
- Pre-existing RBBB/LAFB
- Class 2 obesity (BMI of 38)
- Obstructive sleep apnea, on CPAP
- Nonobstructive coronary artery disease
- Anomalous coronary arteries
- Prostate CA 2009
- Anaphylaxis with iodine
- Acute postop blood loss anemia
- Acute postop thrombocytopenia/coagulopathy -s/p 2 FFPs, 1 unit platelets
- Acute postop atelectasis
- Acute postop hypovolemia with subsequent hypervolemia
- Acute postop wheezing- diurese, nebs
Subjective
Procedure
- s/p Surgical aortic valve replacement with aortic root enlargement (Modified Lizandro) using bovine pericardial patch; CABG x 1 [aorto to left radial to OM]; Left atrial maze, surgical ablation [RF ablation]; LAAE with 35 mm clip on 01/08/[address] Spencer
-
Date of Service: January 13, 2024
Objective Data
-
Lab Results
01/13/24 04:00
01/13/24 04:00
PT 19.7 Sec (11.4-14.6) H 01/08/24 14:47
INR 1.66 01/08/24 14:47
APTT 31.8 Sec (23.4-35.0) 01/08/24 14:47
Vital Signs
Vital Signs
Temp Pulse Resp BP Pulse Ox
98.7 F 62 20 129/70 97
01/13/24 04:00 01/13/24 04:00 01/13/24 04:00 01/13/24 03:48 01/13/24 04:00
CT Intake/Output/Weight
01/12/24 01/12/24 01/13/24
06:59 18:59 06:59
Intake Total 120 / 720 620 / 740 120 / 740
Output Total 1175 / 4200 2875 / 3625 750 / 3625
Balance -1055 / -3480 -2255 / -2885 -630 / -2885
SaO2: 97
Physical Exam
-
General: Awake and Oriented
Cardiovascular: Regular rate & rhythm, No Murmurs and No Rub
Respiratory: Equal
Sternum: Stable
Incision: Clean, Dry and Intact
Extremities: No Edema
Data Reviewed
-
Lab Results: Results Reviewed
Medications: Active Meds Reviewed
Chest X-Ray: Report Reviewed
ECG: Report Reviewed
[2024-01-13] MEDS: KCL 40 MEQ PO ×4 (05:54→20:16)
[2024-01-13] MEDS: TYLENOL 1000 MG PO ×3 (05:54→20:16)
[2024-01-13] MEDS: SYMBICORT 160/4.5 MCG INHALER 2 PUFF INH ×2 (07:19→19:33)
[2024-01-13] MEDS: VENTOLIN NEBULES 2.5 MG INH ×4 (07:19→19:33)
[2024-01-13 07:24] LABS: Glucose - Point of Care 159 mg/dl (70-99)
--- NOTE | 2024-01-13 07:40 | PTCARENOTE ---
Pt received from outgoing RN. Pt oob in a chair, aaox4, vss, RA, NSR, Cordis, ACHS BS, continue to diuresis, ambulate, breathing treatment, will remain in the facility today. 1400 bmp pending
[2024-01-13] MEDS: PLAVIX 75 MG PO (07:47)
[2024-01-13] MEDS: LOW STRENGTH ASPIRIN 81 MG PO (07:47)
[2024-01-13] MEDS: CALAN EXTENDED RELEASE 120 MG PO ×2 (07:47→20:16)
[2024-01-13] MEDS: PROTONIX 40 MG PO (07:47)
[2024-01-13] MEDS: LASIX 40 MG IV ×2 (07:47→15:01)
[2024-01-13] MEDS: FEOSOL 325 MG PO (07:47)
[2024-01-13] MEDS: VITAMIN C 500 MG PO (07:47)
[2024-01-13] MEDS: MUCINEX 600 MG PO ×2 (07:47→20:16)
[2024-01-13] MEDS: LASIX IV (07:48)
[2024-01-13] MEDS: NOVOLOG FLEXPEN-MODERATE RESISTANCE 1 UNITS SC ×2 (07:48→17:13)
[2024-01-13] MEDS: LIDOCAINE 4% PATCH TOPICAL (07:48)
[2024-01-13] MEDS: SENOKOT-S PO ×2 (07:49→20:17)
[2024-01-13] MEDS: GLUCOPHAGE 500 MG PO ×2 (10:22→15:33)
--- NOTE | 2024-01-13 11:43 | PTCARENOTE ---
Pt reassessment unchanged from previous, vss, ra, nsr, ambulating with cardiac rehab, improved on walks less frequent breaks and decreased c/o sob. Continue to diuresis, ACHS bs, restarted metformin today.
[2024-01-13 11:48] LABS: Glucose - Point of Care 119 mg/dl (70-99)
[2024-01-13] MEDS: NOVOLOG FLEXPEN-MODERATE RESISTANCE SC (11:49)
--- NOTE | 2024-01-13 13:31 | W.PN.CARDCBS ---
Addendum entered and electronically signed by Derek South MD 01/13/24 16:01:
I saw and examined the patient.
The WORK COUNSELOR or PA's note was reviewed and I agree with the note.
Comment: General: Well developed, well nourished in NAD.
Neck: Supple, no JVD, HJR, carotids +2 B/L, no bruits bilaterally.
Heart: Non displaced PMI, RRR, no significant murmur, No S3, S4, no rubs.
Lungs: Scattered rhonchi
Sternal dressings noted
Extremities: No clubbing, cyanosis or edema bilaterally.
Neuro: Grossly nonfocal, awake, alert and oriented x3.
Stable cardiology status. Significant diuresis over the past 48 hours. Continue IV Lasix. Remains in sinus rhythm.
Original Note:
Today's Communication / Plan
-
Continue diuresis
replete K+
Enc IS and increasing ambulation post op
Impression / Plan
-
Primary Underground Mine Machinery Mechanic: Dr. Green
Assessment:
Status post SAVR, aortic root enlargement, CABG x1 aorto to left radial to OM, LA MAZE, RELL clip 01/08/24
Anaphylactic shock after induction
Severe with mod AI
Anomalous circumflex artery
Chronic HFpEF
mod to severe LVH
Atrial flutter s/p ablation 08/2023
WPW s/p RF ablation 2007
Bifascicular block
HTN
HLD
DM2
GERD
Asthma
KWABENA on CPAP
Obesity
History of prostate cancer s/p prostatectomy
ECHO 10/02/23: EF 60 to 65%, severe with peak/mean gradient 76/48 mmHg, RAYO 1.1 cm�, no AR
Plan:
-Severe : Status post SAVR, aortic root enlargement, CABG x1 aorto to left radial to OM, MAZE, RELL clip 01/08/24. POD#5
-patient was noted to have anaphylaxis with shock shortly after induction. fortunately stabilized after benadryl, albuterol, steroids, pepcid, epi. he was also noted to again become hypotensive with initiation of platelet infusion.
-Patient noted to have wheezing overnight. Improved w/ Symbicort and DuoNebs.
-Beta-darrius discontinued 01/11/24 secondary to wheezing. Replaced with verapamil given radial graft
-was noted to have some junctional rhythm around the time of CT pull. Plus a 6-beat run of NSVT 01/10/24. Resumed on Lopressor however developed wheezing and Lopressor and Norvasc now discontinued. Replaced with verapamil.
-Per review of tele staying in sinus rhythm without arrhythmia
-also with evidence of likely pericarditis by EKG on ECG 01/10/24. Patient has pericardial rub. Denies chest pain. Discussed colchicine with CT surgery but will hold for now.
-He has chronic RBBB/LAFB predating surgery
-BPs elevated. discussed with CT surgery increasing norvasc (started for radial graft) as will not cause bradycardia but will give BP benefit
-Weight improving, down 9 lbs overnight at 13 lbs in last 2 days. Appears to be near baseline although patient reports his weight was around 260 lbs a month before admission. Continue diuresis with IV Lasix, he did get metolazone 5 mg 01/11 and
01/12.
-Replete potassium, 3.4, repeat BMP ordered
-s/p 2 FFP 1 unit plts 01/07
-hgb 8.8, plts improved to 104K.
-continue post op care
-was on eliquis preoperatively. RELL with clip noted to be totally occlusive by intraop LOGAN
Progress Note - Underground Mine Machinery Mechanic
Subjective
Date of Service: January 13, 2024
Patient seen and examined. Patient sitting up in chair. Reports overall he is feeling well. Does note some mild shortness of breath with ambulation. Has been urinating a good deal in last 24 hours.
Objective
Labs:
01/13/24 04:00
Labs
Hgb 8.8 g/dL (13.0-18.0) L 01/13/24 04:00
Hct 25.9 % (39.0-52.0) L 01/13/24 04:00
Plt Count 104 10^3/uL (130-400) L D 01/13/24 04:00
PT 19.7 Sec (11.4-14.6) H 01/08/24 14:47
INR 1.66 01/08/24 14:47
APTT 31.8 Sec (23.4-35.0) 01/08/24 14:47
Sodium 136 mmol/L (135-145) 01/13/24 04:00
Potassium 3.4 mmol/L (3.5-5.1) L 01/13/24 04:00
BUN 24 mg/dl (9-20) H 01/13/24 04:00
Creatinine 0.8 mg/dL (0.7-1.3) 01/13/24 04:00
Glucose 128 mg/dl (70-99) H 01/13/24 04:00
Vital Signs and I&O:
Vital Signs
Temp Pulse Resp BP Pulse Ox
97.9 F 74 17 155/73 96
01/13/24 11:23 01/13/24 11:28 01/13/24 11:28 01/13/24 11:23 01/13/24 11:28
Vital Signs
Temp Pulse Resp BP Pulse Ox
97.9 F 74 17 155/73 96
01/13/24 11:23 01/13/24 11:28 01/13/24 11:28 01/13/24 11:23 01/13/24 11:28
Intake & Output
01/11/24 01/12/24 01/13/24 01/14/24
06:59 06:59 06:59 06:59
Intake Total 400 / 400 720 / 720 740 / 740 240 / 240
Output Total 2610 / 2610 4200 / 4200 3825 / 3825 1600 / 1600
Balance -2210 / -2210 -3480 / -3480 -3085 / -3085 -1360 / -1360
Physical Exam
Physical Exam
GEN: No distress, awake, Ox3, sitting up in chair
HEENT: supple, anicteric, mmm
LUNGS: CTA of the mildly decreased at bases, no wheezes/rales
CV: Reg, S1/S2, 1/6 syst LSB murmur
ABD: soft, BS+, NT/ND
EXT: Trace to +1 bilateral lower extremity edema
NEURO: Gross non-focal
SKIN: No rash, warm, dry, pink
[2024-01-13] MEDS: ZAROXOLYN 5 MG PO (13:55)
[2024-01-13] MEDS: NSS IV (13:56)
[2024-01-13 14:37] LABS: Blood Urea Nitrogen 25 mg/dl (9-20); Calcium 9.1 mg/dl (8.4-10.2); Carbon Dioxide 26 mmol/L (22-30); Chloride 97 mmol/L (98-107); Estimated Creatinine Clearance 103 ml/min; Glucose 133 mg/dl (70-99); Potassium 3.6 mmol/L (3.5-5.1); Sodium 135 mmol/L (135-145); eGFR > 60.00
--- NOTE | 2024-01-13 14:48 | CARDSERVLU ---
Echocardiogram with [facility] completed after protocol screening completed. Allergies verified.
Patent IV site: _R hand____
IV site flushed with 0.9% NaCl pre and post administration.
Diluted bolus method utilized to enhance visualization of ventricular khan.
Total volume given: __5__ mL
Patient tolerated all procedures well without complications.
[2024-01-13] MEDS: MYLICON 80 MG PO (15:02)
--- NOTE | 2024-01-13 16:04 | CM ---
dc plans remain dc to home when medically stable and a f/u visit from the ct transitional care nurse after dc
--- NOTE | 2024-01-13 16:16 | PTCARENOTE ---
Pt reassessment unchanged from previous, vss, ra, nsr, rt ij cordis, BMP this afternoon completed, repleted K with 40 K now and 40 K this evening. Pain under controlled.
[2024-01-13 16:51] LABS: Glucose - Point of Care 197 mg/dl (70-99)
[2024-01-13] MEDS: LIPITOR 20 MG PO (17:14)
--- NOTE | 2024-01-13 20:00 | PTCARENOTE ---
assumed care of pt from previous RN. pt A&Ox4, resting in chair at time of assessment. SR on tele-monitor. POX 97% on RA. pt voiding clear, yellow urine in urinal. all surgical sites stable, CDI. R IJ cordis w/ KVO. PIV intact. pt ambulated 200' w/
this RN, assisted back to bed. see worklist for complete nursing assessment, interventions, VS, and I&Os.
[2024-01-14] VITALS (7 sets, daily range): BP systolic 132–157; BP diastolic 67–77; PULSE 98; O2SAT 96; BMI 38.3
--- NOTE | 2024-01-14 | PTCARENOTE ---
assessment remains unchanged. VSS. pt home CPAP on overnight.
--- NOTE | 2024-01-14 03:31 | W.PN.CT ---
Today's Communication / Plan
-
Plan:
-No major issues overnight. Hemodynamically and neurologically intact
-Off all drips
-TTE yesterday 01/12 technically limited, unable to assess aortic valve, LVEF 65-70%, no pericardial effusion
-Noted to have postop wheezing and respiratory distress, Amiodarone and BB d/c'd
-On Verapamil for L Radial conduit, Norvasc d/c'd
-Weight noted to be up 20 lbs postop, responding well to diuresis and now down to just 4lbs preop as of yesterday, check wt today. Diuresed 4L yesterday
-Gentle diuresis, noted to have 1+ LE pitting edema
-K 3.5, will replete
-Platelets stable @ 114K today, was 104K yesterday, cont. ASA/Plavix
-Cont. current meds (ASA, Plavix, Verapamil for radial graft, Lipitor, Protonix, Feosol, Symbicort, metformin)
-Encourage use of IS
-OOB into chair/Ambulate
-D/C cordis
-D/C home
Assessment / Plan
-
Assessment:
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
radial to OM]; Left atrial maze, surgical ablation [RF ablation]; LAAE with 35 mm clip on 01/08/[address] Spencer, pod #6
- Anaphylactic shock after induction, suspected to Betadine- required epinephrine, steroids, and Benadryl injections.
- Intraop LOGAN: LVEF 60-65% with mod-severe LVH preop. Following surgery, LVEF was 75%, extremely hyperdynamic. He had a very thick heart and initially had a flow gradient across the LVOT that slowly improved as his vasoplegia also improved. He did
require vasopressin coming off of cardiopulmonary bypass which is likely secondary to his anaphylactic shock. At the conclusion of the surgery he had no paravalvular leak, the mean gradient across his new bioprosthetic aortic valve was likely
inaccurate due to his hyperdynamic state. His left ventricular ejection fraction was at least 75% and a cardiac index was well over 3 at that time. There were no new regional wall motion abnormalities and he had excellent flow in his radial artery
bypass graft to the OM.
- Hypertension
- Hyperlipidemia
- Acute on chronic diastolic heart failure with moderate to moderately severe left ventricular hypertrophy
- Djiju-Hzcbltzrz-Oysoe syndrome- status post RF ablation x2
- Paroxysmal atrial fibrillation- status post ablation
- Pre-existing RBBB/LAFB
- Class 2 obesity (BMI of 38)
- Obstructive sleep apnea, on CPAP
- Nonobstructive coronary artery disease
- Anomalous coronary arteries
- Prostate CA 2009
- Anaphylaxis with iodine
- Acute postop blood loss anemia
- Acute postop thrombocytopenia/coagulopathy -s/p 2 FFPs, 1 unit platelets
- Acute postop atelectasis
- Acute postop hypovolemia with subsequent hypervolemia
- Acute postop wheezing- diurese, nebs
- Acute postop hyponatremia, 134
Discussed patient care with: Cardiology, Nursing, Respiratory Therapy, Pharmacy and Care Team
Subjective
Procedure
- s/p Surgical aortic valve replacement with aortic root enlargement (Modified Lizandro) using bovine pericardial patch; CABG x 1 [aorto to left radial to OM]; Left atrial maze, surgical ablation [RF ablation]; LAAE with 35 mm clip on 01/08/[address] Spencer
-
Date of Service: January 14, 2024
Pt c/o mild incisional pain, wheezing has resolved. Ambulating halls without difficulty. Had BM
Objective Data
-
PT 19.7 Sec (11.4-14.6) H 01/08/24 14:47
INR 1.66 01/08/24 14:47
APTT 31.8 Sec (23.4-35.0) 01/08/24 14:47
Vital Signs
Vital Signs
Temp Pulse Resp BP Pulse Ox
98 F 63 16 121/61 95
01/14/24 00:00 01/14/24 00:00 01/14/24 00:00 01/13/24 23:21 01/14/24 00:00
CT Intake/Output/Weight
01/13/24 01/13/24 01/14/24
06:59 18:59 06:59
Intake Total 120 / 740 240 / 270 30 / 270
Output Total 950 / 3825 2450 / 3050 600 / 3050
Balance -830 / -3085 -2210 / -2780 -570 / -2780
SaO2: 95 (RA)
Physical Exam
-
General: Awake, Oriented and AOx3
Cardiovascular: Regular rate & rhythm, No Murmurs, No Rub and No Gallop
Respiratory: Decreased Breath Sounds (at bases with left basilar crackles )
Sternum: Stable
Incision: Clean, Dry, Intact and Dressing Intact
Extremities: Edema +1
Data Reviewed
-
Lab Results: Results Reviewed
Medications: Active Meds Reviewed
Chest X-Ray: Report Reviewed and Image Reviewed
ECG: Report Reviewed and Image Reviewed
[2024-01-14 04:38] LABS: Hematocrit 27.8 % (39.0-52.0); Hemoglobin 9.5 g/dL (13.0-18.0); Mean Corp Hgb Conc. 34.2 g/dL (33.0-37.0); Mean Corpuscular Volume 87.7 fL (80.0-94.0); Mean Platelet Volume 10.8 fL (7.4-10.4); Platelet Count 114 10^3/uL (130-400); Red Blood Cell Count 3.17 10^6/uL (4.70-6.10); Red Cell Dist. Width 13.6 % (11.5-14.5); White Blood Cell Count 7.2 10^3/uL (4.8-10.8)
[2024-01-14 04:59] LABS: Blood Urea Nitrogen 25 mg/dl (9-20); Calcium 9.1 mg/dl (8.4-10.2); Carbon Dioxide 29 mmol/L (22-30); Chloride 96 mmol/L (98-107); Estimated Creatinine Clearance 116 ml/min; Glucose 121 mg/dl (70-99); Magnesium 1.9 mg/dl (1.6-2.3); Potassium 3.5 mmol/L (3.5-5.1); Sodium 136 mmol/L (135-145); eGFR > 60.00
[2024-01-14] MEDS: TYLENOL 1000 MG PO (06:02)
[2024-01-14] MEDS: KCL 40 MEQ PO (06:02)
[2024-01-14] MEDS: VENTOLIN NEBULES 2.5 MG INH ×2 (07:15→11:38)
[2024-01-14] MEDS: SYMBICORT 160/4.5 MCG INHALER 2 PUFF INH (07:15)
--- NOTE | 2024-01-14 07:48 | PTCARENOTE ---
Patient received from production shift supervisor resting oob in chair, AAO X 3, states pain controlled. NSR, SaO2 @ 94% on RA. RIKatherine Boone present. All procedural sites stable. Patient updated to plan of care for the day, including pending d/c home, in agreement.
See work list for full assessment and interventions performed.
[2024-01-14] MEDS: NOVOLOG FLEXPEN-MODERATE RESISTANCE SC (08:07)
[2024-01-14] MEDS: LOW STRENGTH ASPIRIN 81 MG PO (09:15)
[2024-01-14] MEDS: SENOKOT-S 1 TABLET PO (09:15)
[2024-01-14] MEDS: FEOSOL 325 MG PO (09:15)
[2024-01-14] MEDS: LASIX 20 MG PO (09:15)
[2024-01-14] MEDS: PLAVIX 75 MG PO (09:15)
[2024-01-14] MEDS: PROTONIX 40 MG PO (09:16)
[2024-01-14] MEDS: VITAMIN C 500 MG PO (09:16)
[2024-01-14] MEDS: MUCINEX 600 MG PO (09:16)
[2024-01-14] MEDS: GLUCOPHAGE 500 MG PO (09:16)
[2024-01-14] MEDS: CALAN EXTENDED RELEASE 120 MG PO (09:16)
[2024-01-14] MEDS: LIDOCAINE 4% PATCH TOPICAL (09:24)
[2024-01-14] MEDS: LASIX IV (09:24)
--- NOTE | 2024-01-14 10:37 | W.DCSUMMARY ---
Discharge Summary
Discharge Data
Date of Admission: 01/08/24
Date of Discharge: 01/14/24
-
Pending Results: No
Hospital Course
Primary care physician: Shahrzad Palomo
Outpatient apartment leasing specialist: Richy Green
Inpatient consultants: [facility]
Procedures:
1. Aortic valve replacement with root enlargement, CABG x 1, left atrial maze, and left atrial appendage exclusion
Primary Diagnosis:
1. Severe aortic stenosis
Secondary Diagnoses:
1. 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
2. Atrial flutter (on Eliquis)
HPI: 68-year-old male was electively admitted on 01/08/2024 for aortic valve replacement, possible root enlargement and CABG x 1, MAZE and left atrial appendage clip
Hospital course: Patient had known allergy to chlorhexidine and was prepped with Betadine in the operating room. Patient developed hives wheeze anaphylactic reaction to the iodine. Patient received steroid, Benadryl, Pepcid, epi, and albuterol.
Patient required GlideScope intubation and underwent CABG x 1 [left radial to OM], aortic valve replacement with aortic root enlargement (Modified Nicks-Mae) using bovine pericardial patch, left atrial maze, surgical ablation [RF ablation], and
left atrial appendage exclusion [#35 mm clip] with Dr. Paolo Spencer. Patient returned to CVICU on Levophed, elevated pressors, Cardene, insulin, and Precedex. Patient had no further wheezing and was extubated at 1815 for the day of surgery. On
postoperative day #1, vasopressin was discontinued and patient declined. Wires and chest tubes were discontinued. Symbicort was changed to twice daily dosing Aspirin and Plavix were initiated. On postoperative day #2, initial junctional rhythm
converted to sinus and Lopressor was increased to 25 mg twice daily with Norvasc increased for hypertension. Patient was further diuresed with Lasix twice daily and Diamox on postoperative day #3. Patient developed some additional wheezing and
Norvasc/beta-darrius were discontinued. Verapamil was initiated. Platelets remained in the 60s. Patient was scheduled DuoNebs for wheezing. Patient was off oxygen by postoperative day #5. Patient continued diuresis. On postoperative day #6,
right IJ cordis was discontinued. Weight reduced from 130 to 121 kg. Due to history of atrial flutter, patient was converted to Eliquis and aspirin at discharge per discussion with surgeon. Patient ambulated and completed steps with cardiac rehab
and is deemed stable for discharge to home.
Home medication changes:
Discharge Plan
-
Patient Disposition: Home (Routine Discharge)
Discharge Diagnosis/Procedures: aortic stenosis/AVR
Condition: Good
Diet: Low Cholesterol, Low Sodium and Diabetic, Carb Controlled
Activity: No strenuous activity
Driving Restrictions: Not until seen by your Dr
Bathing Restrictions: OK to Shower
Other Services: Cardiac Rehab
Specialty Instructions: Weigh Daily- Call MD for wt gain/loss 3 lbs overnight/5 lbs in 1 week
Referrals:
CT Transitional Care Nurse [Outside]
(
The Cardiothoracic Transitional Care Nurse will call you to set up a visit in 1-2 days.)
Tanya Torre PA-C [Specified Professional Personl] - 02/19/24 9:40 am
Shahrzad Palomo PA-C [Family Provider] -
Paolo Spencer MD [Active] - 01/29/24 1:30 pm
Prescriptions:
New
ipratropium-albuterol 0.5 mg-3 mg(2.5 mg base)/3 mL Solution For Nebulization
3 ml inhalation R Q4HPRN PRN (Reason: wheeze, sob) Qty: 3 1RF
albuterol sulfate 90 mcg/actuation Hfa Aerosol Inhaler
2 puff inhalation R Q4HPRN PRN (Reason: wheezing/shortness of breath) Qty: 2 1RF
verapamil 120 mg Tablet Extended Release
120 mg PO BID Qty: 60 1RF
ferrous sulfate [FeroSul] 325 mg (65 mg iron) Tablet
325 mg PO DAILY Qty: 30 0RF
aspirin 81 mg Tablet,Chewable
81 mg PO DAILY Qty: 0 0RF
metformin 500 mg Tablet
500 mg PO BID@0800,1600 Qty: 60 1RF
pantoprazole 40 mg Tablet,Delayed Release (Dr/Ec)
40 mg PO DAILY Qty: 30 1RF
oxycodone 5 mg Tablet
5 mg PO Q4HPRN PRN (Reason: severe pain) Qty: 20 0RF
budesonide-formoterol [Symbicort] 160-4.5 mcg/actuation Hfa Aerosol Inhaler
2 puff inhalation R BID Qty: 3 0RF
ascorbic acid (vitamin C) [Vitamin C] 500 mg Tablet
500 mg PO DAILY Qty: 30 0RF
furosemide 20 mg Tablet
20 mg PO DAILY Qty: 30 0RF
Continued
acetaminophen [Tylenol] 325 mg Tablet
650 mg PO PRN PRN (Reason: pain)
atorvastatin 20 mg Tablet
20 mg PO QPM
fluticasone propionate 50 mcg/actuation [place],Suspension
1 - 2 spray INTRANASAL PRN PRN (Reason: allergy)
coenzyme Q10 [CoQ-10] 100 mg Capsule
50 mg PO QPM
guaifenesin [Mucinex] 1,200 mg Tablet Extended Release 12hr
1,200 mg PO PRN PRN (Reason: allergies)
Eliquis 5 mg Tablet
5 mg PO BID
Discontinued
lisinopril 20 MG tablet
20 mg PO QPM
ibuprofen 200 MG tablet
400 mg PO PRN PRN (Reason: pain)
metformin 500 mg Tablet
500 mg PO QPM
Patient Comments:
takes after dinner
budesonide-formoterol [Symbicort] 160-4.5 mcg/actuation Hfa Aerosol Inhaler
1 - 2 puff INHALATION PRN PRN (Reason: SOB)
albuterol 90 mcg/actuation Aerosol
90 mcg INHALATION Q4 PRN (Reason: sob)
Discharge Orders:
Discharge Patient (As Directed); Ordered 01/14/24
Ordered By: Nathalie Aceves
Care Plan Goals
Care Plan Goals:
Problem: Readiness for enhanced knowledge related to diagnosis and treatment plan
Goal: Understand your diagnosis and treatment plan needs, including medications if applicable.
Instructions: Know your diagnosis, underlying causes and treatment plan options, including medications if applicable. Consult with your health care team to learn about your diagnosis and treatment plan, including medications if applicable.
Discharge Date and Time
Print Language: [place]
--- NOTE | 2024-01-14 13:29 | PTCARENOTE ---
Patient set up to shower, completed independently. PIV removed. Discharge instructions thoroughly reviewed w/patient and spouse, all questions answered. Patient encouraged to decide on cardiac rehab program, emphasized importance of scheduling
appointments as soon as possible. Patient and all belongings transported to waiting vehicle for d/c home w/spouse.
--- NOTE | 2024-01-14 13:34 | W.PN.CARDCBS ---
Addendum entered and electronically signed by Derek South MD 01/14/24 14:09:
I saw and examined the patient.
The INSULATOR HELPER or PA's note was reviewed and I agree with the note.
Comment: General: Well developed, well nourished in NAD.
Neck: Supple, no JVD, HJR, carotids +2 B/L, no bruits bilaterally.
Heart: Non displaced PMI, RRR, no murmurs, No S3, S4, no rubs.
Lungs: Scattered rhonchi
Sternal dressings noted
Extremities: No clubbing, cyanosis or edema bilaterally.
Neuro: Grossly nonfocal, awake, alert and oriented x3.
Stable cardiology status for discharge. Remains in sinus rhythm. Follow-up arranged.
Original Note:
Today's Communication / Plan
-
for DC today
OP cardiac follow up arranged
Impression / Plan
-
Primary Pyrometer Temperature Regulator: Dr. Green
Assessment:
Status post SAVR, aortic root enlargement, CABG x1 aorto to left radial to OM, LA MAZE, RELL clip 01/08/24
Anaphylactic shock after induction
Severe with mod AI
Anomalous circumflex artery
Chronic HFpEF
mod to severe LVH
Atrial flutter s/p ablation 08/2023
WPW s/p RF ablation 2007
Bifascicular block
HTN
HLD
DM2
GERD
Asthma
KWABENA on CPAP
Obesity
History of prostate cancer s/p prostatectomy
ECHO 10/02/23: EF 60 to 65%, severe with peak/mean gradient 76/48 mmHg, RAYO 1.1 cm�, no AR
ECHO 01/13/24: Very technically limited study, Definity used, EF 65 to 70%, no pericardial effusion, no significant change. Aortic valve not able to be assessed
Plan:
-Status post SAVR, aortic root enlargement, CABG x1 aorto to left radial to OM, MAZE, RELL clip 01/08/24. patient was noted to have anaphylaxis with shock shortly after induction. fortunately stabilized after benadryl, albuterol, steroids, pepcid,
epi. he was also noted to again become hypotensive with initiation of platelet infusion.
-no amio/BB due to wheezing, bradycardia
-continue verapamil 120mg BID for radial graft
-with evidence of likely pericarditis by EKG, CT surgery holding off on colchicine for now.
-He has chronic RBBB/LAFB predating surgery
-weight downtrending with diuresis. being discharged on po lasix 20mg daily
-echo 01/12 with results as above
-OP eliquis resumed. RELL with clip noted to be totally occlusive by intraop LOGAN
-OP lisinopril not resumed post surgically
-for DC today
-cardiac rehab
-OP cardiac follow up arranged
Progress Note - Pyrometer Temperature Regulator
Subjective
Date of Service: January 14, 2024
no issues overnight noted
Objective
Labs:
01/14/24 04:06
01/14/24 04:06
Labs
Hgb 9.5 g/dL (13.0-18.0) L 01/14/24 04:06
Hct 27.8 % (39.0-52.0) L 01/14/24 04:06
Plt Count 114 10^3/uL (130-400) L 01/14/24 04:06
PT 19.7 Sec (11.4-14.6) H 01/08/24 14:47
INR 1.66 01/08/24 14:47
APTT 31.8 Sec (23.4-35.0) 01/08/24 14:47
Sodium 136 mmol/L (135-145) 01/14/24 04:06
Potassium 3.5 mmol/L (3.5-5.1) 01/14/24 04:06
BUN 25 mg/dl (9-20) H 01/14/24 04:06
Creatinine 0.8 mg/dL (0.7-1.3) 01/14/24 04:06
Glucose 121 mg/dl (70-99) H 01/14/24 04:06
Vital Signs and I&O:
Vital Signs
Temp Pulse Resp BP Pulse Ox
98.2 F 79 16 142/67 97
01/14/24 10:00 01/14/24 11:00 01/14/24 11:39 01/14/24 10:00 01/14/24 10:00
Vital Signs
Temp Pulse Resp BP Pulse Ox
98.2 F 79 16 142/67 97
01/14/24 10:00 01/14/24 11:00 01/14/24 11:39 01/14/24 10:00 01/14/24 10:00
Intake & Output
01/12/24 01/13/24 01/14/24 01/15/24
07:59 07:59 07:59 07:59
Intake Total 720 / 990 860 / 860 160 / 160 240 / 240
Output Total 4200 / 4200 3825 / 3825 4125 / 4125 525 / 525
Balance -3480 / -3210 -2965 / -2965 -3965 / -3965 -285 / -285
== END 2024-01-14 13:43 | disposition home or self-care (01) | DRG 219 ==
LOC: CVICU 05:06
PROVIDERS: Anesthesiology; Clinical Nurse Specialist Acute Care; Nurse Practitioner; ADMITTING PHYSICIAN Thoracic Surgery (Cardiothoracic Vascular Surgery); CONSULT PHYSICIAN Internal Medicine; FAMILY PHYSICIAN Physician Assistant Medical
PROC: 30233N1 Transfusion of Nonautologous Red Blood Cells into Peripheral Vein, Percutaneous Approach (ICD-10-PCS; 2024-01-08)
PROC: 02RF08Z Replacement of Aortic Valve with Zooplastic Tissue, Open Approach (ICD-10-PCS; 2024-01-08)
PROC: 30233R1 Transfusion of Nonautologous Platelets into Peripheral Vein, Percutaneous Approach (ICD-10-PCS; 2024-01-08)
PROC: 02UX08Z Supplement Thoracic Aorta, Ascending/Arch with Zooplastic Tissue, Open Approach (ICD-10-PCS; 2024-01-08)
PROC: 02L70CK Occlusion of Left Atrial Appendage with Extraluminal Device, Open Approach (ICD-10-PCS; 2024-01-08)
PROC: 02100AW Bypass Coronary Artery, One Artery from Aorta with Autologous Arterial Tissue, Open Approach (ICD-10-PCS; 2024-01-08)
PROC: 02580ZZ Destruction of Conduction Mechanism, Open Approach (ICD-10-PCS; 2024-01-08)
PROC: 03BC4ZZ Excision of Left Radial Artery, Percutaneous Endoscopic Approach (ICD-10-PCS; 2024-01-08)
PROC: B24BZZ4 Ultrasonography of Heart with Aorta, Transesophageal (ICD-10-PCS; 2024-01-08)
PROC: 5A09357 Assistance with Respiratory Ventilation, Less than 24 Consecutive Hours, Continuous Positive Airway Pressure (ICD-10-PCS; 2024-01-08)
PROC: 5A1221Z Performance of Cardiac Output, Continuous (ICD-10-PCS; 2024-01-08)
DX: I35.0 Nonrheumatic aortic (valve) stenosis (principal); I50.33 Acute on chronic diastolic (congestive) heart failure; Q24.5 Malformation of coronary vessels; I48.92 Unspecified atrial flutter; T88.6XXA Anaphylactic reaction due to adverse effect of correct drug or medicament properly administered, initial encounter; I45.2 Bifascicular block; D62 Acute posthemorrhagic anemia; D68.8 Other specified coagulation defects; J98.11 Atelectasis; I30.9 Acute pericarditis, unspecified; I11.0 Hypertensive heart disease with heart failure; E78.5 Hyperlipidemia, unspecified; I48.0 Paroxysmal atrial fibrillation; E66.01 Morbid (severe) obesity due to excess calories; G47.33 Obstructive sleep apnea (adult) (pediatric); I25.10 Atherosclerotic heart disease of native coronary artery without angina pectoris; T49.0X5A Adverse effect of local antifungal, anti-infective and anti-inflammatory drugs, initial encounter; E11.9 Type 2 diabetes mellitus without complications; Y83.2 Surgical operation with anastomosis, bypass or graft as the cause of abnormal reaction of the patient, or of later complication, without mention of misadventure at the time of the procedure; D69.59 Other secondary thrombocytopenia; E87.70 Fluid overload, unspecified; E86.0 Dehydration; Z68.38 Body mass index [BMI] 38.0-38.9, adult; Z79.01 Long term (current) use of anticoagulants; Z79.899 Other long term (current) drug therapy; Z82.49 Family history of ischemic heart disease and other diseases of the circulatory system
CPT/HCPCS: 88305; 88311; 93308; 36415; 71045; 71046; 80048; 80053; 81003; 81015; 82248; 82330; 82565; 82805; 82947; 82962; 83036; 83735; 84132; 84302; 84520; 85014; 85018; 85025; 85027; 85049; 85610; 85730; 86023; 86803; 86850; 86900; 86901; 86920; 87070; 93005; 93312; 93320; 93325; 93880; 94002; 94640; 94660; P9045; P9047; P9059; P9073; Q9950

== ENCOUNTER → 2024-01-27 13:23 | Outpatient (REF) | payer MEDICARE, SELFPAY | LOC: REG 13:23 | PROVIDERS: ATTENDING PHYSICIAN Thoracic Surgery (Cardiothoracic Vascular Surgery); FAMILY PHYSICIAN Physician Assistant Medical | DX: I35.0 Nonrheumatic aortic (valve) stenosis (principal); Z95.1 Presence of aortocoronary bypass graft | CPT/HCPCS: 71046 ==

== ENCOUNTER → 2024-01-31 10:21 | Outpatient (REF) | payer MEDICARE, SELFPAY | LOC: RCS 10:21 | PROVIDERS: ATTENDING PHYSICIAN Thoracic Surgery (Cardiothoracic Vascular Surgery); FAMILY PHYSICIAN Physician Assistant Medical | DX: Z95.2 Presence of prosthetic heart valve (principal); Z95.1 Presence of aortocoronary bypass graft | CPT/HCPCS: 93306; Q9950 ==

== ENCOUNTER → 2024-08-17 11:04 | Outpatient (REF) | payer OTHER, SELFPAY | LOC: HWRCS 11:04 | PROVIDERS: ATTENDING PHYSICIAN Thoracic Surgery (Cardiothoracic Vascular Surgery); FAMILY PHYSICIAN Physician Assistant Medical | DX: Z95.2 Presence of prosthetic heart valve (principal); Z95.1 Presence of aortocoronary bypass graft | CPT/HCPCS: 93306 ==

== ENCOUNTER → 2025-05-24 09:46 | Outpatient (REF) | payer OTHER, SELFPAY ==
[2025-05-24 11:38] LABS: Hematocrit 46.0 % (39.0-52.0); Hemoglobin 14.9 g/dL (13.0-18.0); Mean Corp Hgb Conc. 32.4 g/dL (33.0-37.0); Mean Corpuscular Volume 89.8 fL (80.0-94.0); Nucleated Red Blood Cells % 0 % (-); Platelet Count 126 10^3/uL (130-400); Red Cell Dist. Width 12.6 % (11.5-14.5)
[2025-05-24 12:01] LABS: Blood Urea Nitrogen 18 mg/dl (9-20); Calcium 9.9 mg/dl (8.4-10.2); Carbon Dioxide 31 mmol/L (22-30); Chloride 101 mmol/L (98-107); Glucose 162 mg/dl (70-99); Potassium 4.7 mmol/L (3.5-5.1); Sodium 138 mmol/L (135-145); eGFR > 60.00
== END ==
LOC: REG 09:46
PROVIDERS: ATTENDING PHYSICIAN Orthopaedic Surgery; FAMILY PHYSICIAN Physician Assistant Medical
DX: Z01.818 Encounter for other preprocedural examination (principal)
CPT/HCPCS: 36415; 80048; 85025